=== PATIENT | male | born 1970 | race Two or more races ===

== ENCOUNTER 2021-01-17 09:30 | Outpatient (REF) | payer OTHER, SELFPAY ==
[2021-01-17 10:41] LABS: Microalbum/Creatinine Ratio Ur 7.3 ug/mg cr
[2021-01-17 10:43] LABS: Alanine Aminotransferase 44 U/L (0-40); Albumin Level 4.1 g/dL (3.5-5.0); Alkaline Phosphatase 51 U/L (39-117); Anion Gap 11 (12-20); Aspartate Amino Transferase 35 U/L (5-37); Bilirubin Total 0.6 mg/dL (0.0-1.0); Blood Urea Nitrogen 12 mg/dL (9-16); Calcium 9.3 mg/dL (8.4-10.2); Carbon Dioxide 26 mmol/L (22-29); Chloride 103 mmol/L (96-108); Cholesterol 193 mg/dL; Estimated Glomerular Filt Rate > 60; Glucose Fasting 196 mg/dL (60-99); HDL Cholesterol 45 mg/dL; LDL Cholesterol Calculated 90 mg/dl; Potassium 3.7 mmol/L (3.3-5.1); Sodium 136 mmol/L (135-145); Total Protein 7.1 g/dL (6.5-8.0); Triglycerides 294 mg/dL
[2021-01-21 14:17] LABS: Vitamin D 25-OH, D2 <4 ng/mL; Vitamin D 25-OH, D3 40 ng/mL; Vitamin D 25-OH, Total 40 ng/mL (30-100)
== END 2021-01-17 09:31 | disposition home or self-care (01) ==
LOC: HO.LAB 09:30
PROVIDERS: PCP Internal Medicine; Visit Provider Internal Medicine
DX: E11.9 Type 2 diabetes mellitus without complications (principal); E78.5 Hyperlipidemia, unspecified; E55.9 Vitamin D deficiency, unspecified
CPT/HCPCS: 36415; 80053; 80061; 82043; 82306

== ENCOUNTER 2021-04-09 07:44 | Outpatient (REF) | payer OTHER, SELFPAY ==
[2021-04-09 08:34] LABS: Alanine Aminotransferase 43 U/L (0-40); Albumin Level 4.1 g/dL (3.5-5.0); Alkaline Phosphatase 45 U/L (39-117); Anion Gap 11 (12-20); Aspartate Amino Transferase 20 U/L (5-37); Bilirubin Total 0.8 mg/dL (0.0-1.0); Blood Urea Nitrogen 8 mg/dL (9-16); Calcium 9.4 mg/dL (8.4-10.2); Carbon Dioxide 26 mmol/L (22-29); Chloride 103 mmol/L (96-108); Cholesterol 176 mg/dL; Estimated Glomerular Filt Rate > 60; Glucose Fasting 190 mg/dL (60-99); HDL Cholesterol 44 mg/dL; LDL Cholesterol Calculated 95 mg/dl; Sodium 136 mmol/L (135-145); Total Protein 7.1 g/dL (6.5-8.0); Triglycerides 185 mg/dL
== END 2021-04-09 07:45 | disposition home or self-care (01) ==
LOC: HO.LAB 07:44
PROVIDERS: PCP Internal Medicine; Visit Provider Internal Medicine
DX: E11.9 Type 2 diabetes mellitus without complications (principal)
CPT/HCPCS: 36415; 80053; 80061

== ENCOUNTER 2021-07-26 07:45 | Outpatient (REF) | payer OTHER, SELFPAY ==
[2021-07-26 09:12] LABS: Alanine Aminotransferase 44 U/L (0-40); Albumin Level 4.2 g/dL (3.5-5.0); Alkaline Phosphatase 50 U/L (39-117); Anion Gap 12 (12-20); Aspartate Amino Transferase 31 U/L (5-37); Bilirubin Total 0.7 mg/dL (0.0-1.0); Blood Urea Nitrogen 8 mg/dL (9-16); Calcium 9.6 mg/dL (8.4-10.2); Carbon Dioxide 30 mmol/L (22-29); Chloride 101 mmol/L (96-108); Cholesterol 200 mg/dL; Estimated Glomerular Filt Rate > 60; Glucose Fasting 177 mg/dL (60-99); HDL Cholesterol 46 mg/dL; LDL Cholesterol Calculated 108 mg/dl; Potassium 4.4 mmol/L (3.3-5.1); Sodium 139 mmol/L (135-145); Total Protein 7.6 g/dL (6.5-8.0); Triglycerides 234 mg/dL
[2021-07-26 10:33] LABS: Microalbum/Creatinine Ratio Ur 6.1 ug/mg cr
[2021-07-31 14:15] LABS: Vitamin D 25-OH, D2 <4 ng/mL; Vitamin D 25-OH, D3 34 ng/mL; Vitamin D 25-OH, Total 34 ng/mL (30-100)
== END 2021-07-26 07:46 | disposition home or self-care (01) ==
LOC: HO.LAB 07:45
PROVIDERS: PCP Internal Medicine; Visit Provider Internal Medicine
DX: E11.9 Type 2 diabetes mellitus without complications (principal); E55.9 Vitamin D deficiency, unspecified; E78.5 Hyperlipidemia, unspecified
CPT/HCPCS: 36415; 80053; 80061; 82043; 82306

== ENCOUNTER 2021-10-24 08:49 | Outpatient (REF) | payer OTHER, SELFPAY ==
--- NOTE | 2021-10-24 08:51 | EMG_ITS ---
Right median and ulnar motor and sensory studies were performed. Right radial sensory study was performed and paraspinal muscles were tested. IMPRESSION: 1. Mild to moderate right median neuropathy across carpal tunnel. 2. Mild right ulnar neuropathy across cubital tunnel. MD JANINA Dunbar/KAREN / [phone]
== END 2021-10-24 08:50 | disposition home or self-care (01) ==
LOC: HO.NEURO 08:49
PROVIDERS: PCP Internal Medicine; Visit Provider Internal Medicine
DX: R20.0 Anesthesia of skin (principal)
CPT/HCPCS: 95886; 95909

== ENCOUNTER 2021-12-17 11:28 | Outpatient (REF) | payer OTHER, SELFPAY ==
[2021-12-17 14:15] LABS: Alanine Aminotransferase 28 U/L (0-40); Albumin Level 4.2 g/dL (3.5-5.0); Alkaline Phosphatase 47 U/L (39-117); Anion Gap 13 (12-20); Aspartate Amino Transferase 16 U/L (5-37); Bilirubin Total 0.3 mg/dL (0.0-1.0); Blood Urea Nitrogen 9 mg/dL (9-16); Calcium 9.7 mg/dL (8.4-10.2); Carbon Dioxide 27 mmol/L (22-29); Chloride 102 mmol/L (96-108); Cholesterol 169 mg/dL; Estimated Glomerular Filt Rate > 60; Glucose Fasting 144 mg/dL (60-99); HDL Cholesterol 45 mg/dL; LDL Cholesterol Calculated 76 mg/dl; Sodium 138 mmol/L (135-145); Total Protein 7.3 g/dL (6.5-8.0); Triglycerides 241 mg/dL
[2021-12-17 14:37] LABS: TSH reflex Free T4 2.49 uIU/mL (0.32-4.0)
[2021-12-17 15:15] LABS: Creatinine Urine 264.89 mg/dL; Microalbum/Creatinine Ratio Ur 4.5 ug/mg cr
[2021-12-19 20:52] LABS: Transglutaminase Ab IgG <1.0 U/mL; Transglutaminase IgA <1.0 U/mL
[2021-12-21 13:52] LABS: Vitamin D 25-OH, D2 <4 ng/mL; Vitamin D 25-OH, D3 38 ng/mL; Vitamin D 25-OH, Total 38 ng/mL (30-100)
== END 2021-12-17 11:29 | disposition home or self-care (01) ==
LOC: HO.LAB 11:28
PROVIDERS: PCP Internal Medicine; Referring Provider Internal Medicine; Visit Provider Nurse Practitioner Family
DX: R10.9 Unspecified abdominal pain (principal); K58.2 Mixed irritable bowel syndrome; K21.9 Gastro-esophageal reflux disease without esophagitis; E11.9 Type 2 diabetes mellitus without complications; E78.5 Hyperlipidemia, unspecified; E55.9 Vitamin D deficiency, unspecified
CPT/HCPCS: 36415; 80053; 80061; 82043; 82306; 84443; 86364; 99202

== ENCOUNTER 2021-12-17 19:50 | Outpatient (REF) | payer OTHER, SELFPAY | END 2021-12-17 19:51 | disposition home or self-care (01) | LOC: HO.LNP 19:50 | PROVIDERS: Visit Provider Nurse Practitioner Family | DX: K21.9 Gastro-esophageal reflux disease without esophagitis (principal) | CPT/HCPCS: 87338 ==

== ENCOUNTER 2022-02-27 09:12 | Outpatient (REF) | payer OTHER, SELFPAY ==
[2022-02-27 11:06] LABS: Alanine Aminotransferase 27 U/L (0-40); Alkaline Phosphatase 46 U/L (39-117); Anion Gap 11 (12-20); Aspartate Amino Transferase 18 U/L (5-37); Bilirubin Total 0.4 mg/dL (0.0-1.0); Blood Urea Nitrogen 9 mg/dL (9-16); Carbon Dioxide 28 mmol/L (22-29); Chloride 105 mmol/L (96-108); Cholesterol 170 mg/dL; Estimated Glomerular Filt Rate > 60; Glucose Fasting 122 mg/dL (60-99); HDL Cholesterol 46 mg/dL; LDL Cholesterol Calculated 95 mg/dl; Potassium 4.3 mmol/L (3.3-5.1); Sodium 140 mmol/L (135-145); Total Protein 7.1 g/dL (6.5-8.0); Triglycerides 148 mg/dL
[2022-02-27 12:01] LABS: Microalbum/Creatinine Ratio Ur 4.2 ug/mg cr
== END 2022-02-27 09:13 | disposition home or self-care (01) ==
LOC: HO.LAB 09:12
PROVIDERS: PCP Internal Medicine; Visit Provider Internal Medicine
DX: E11.9 Type 2 diabetes mellitus without complications (principal); E78.5 Hyperlipidemia, unspecified
CPT/HCPCS: 36415; 80053; 80061; 82043

== ENCOUNTER → 2022-03-03 10:35 | Outpatient (BNVA) | payer OTHER, SELFPAY | PROVIDERS: PCP Internal Medicine; Visit Provider Nurse Practitioner Family | DX: K58.2 Mixed irritable bowel syndrome (principal); K21.9 Gastro-esophageal reflux disease without esophagitis; Z79.899 Other long term (current) drug therapy | CPT/HCPCS: 99212 ==

== ENCOUNTER 2022-09-11 09:08 | Outpatient (REF) | payer OTHER, SELFPAY ==
[2022-09-11 10:28] LABS: Creatinine Urine 303.39 mg/dL; Microalbum/Creatinine Ratio Ur 5.9 ug/mg cr
[2022-09-11 10:31] LABS: Alanine Aminotransferase 35 U/L (0-40); Albumin Level 4.2 g/dL (3.5-5.0); Alkaline Phosphatase 52 U/L (39-117); Anion Gap 13 (12-20); Aspartate Amino Transferase 16 U/L (5-37); Bilirubin Total 0.6 mg/dL (0.0-1.0); Blood Urea Nitrogen 8 mg/dL (9-16); Calcium 9.5 mg/dL (8.4-10.2); Carbon Dioxide 29 mmol/L (22-29); Chloride 105 mmol/L (96-108); Cholesterol 163 mg/dL; Estimated Glomerular Filt Rate > 60; Glucose Fasting 121 mg/dL (60-99); HDL Cholesterol 36 mg/dL; LDL Cholesterol Calculated 93 mg/dl; Potassium 4.6 mmol/L (3.3-5.1); Sodium 142 mmol/L (135-145); Total Protein 7.1 g/dL (6.5-8.0); Triglycerides 173 mg/dL
[2022-09-11 10:47] LABS: Vitamin D 25-OH Total 32.1 ng/mL (>30)
== END 2022-09-11 09:09 | disposition home or self-care (01) ==
LOC: HO.LAB 09:08
PROVIDERS: PCP Internal Medicine; Visit Provider Internal Medicine
DX: E11.9 Type 2 diabetes mellitus without complications (principal); E55.9 Vitamin D deficiency, unspecified; E78.5 Hyperlipidemia, unspecified
CPT/HCPCS: 36415; 80053; 80061; 82043; 82306

== ENCOUNTER 2023-01-08 09:51 | Outpatient (REF) | payer OTHER, SELFPAY ==
[2023-01-08 11:49] LABS: Creatinine Urine 220.67 mg/dL; Microalbum/Creatinine Ratio Ur 4.9 ug/mg cr
[2023-01-08 12:13] LABS: Alanine Aminotransferase 28 U/L (0-40); Albumin Level 4.1 g/dL (3.5-5.0); Alkaline Phosphatase 44 U/L (39-117); Anion Gap 14 (12-20); Aspartate Amino Transferase 18 U/L (5-37); Bilirubin Total 0.8 mg/dL (0.0-1.0); Blood Urea Nitrogen 11 mg/dL (9-16); Calcium 9.5 mg/dL (8.4-10.2); Carbon Dioxide 24 mmol/L (22-29); Chloride 104 mmol/L (96-108); Cholesterol 178 mg/dL; Estimated Glomerular Filt Rate > 60; Glucose Fasting 126 mg/dL (60-99); HDL Cholesterol 43 mg/dL; LDL Cholesterol Calculated 98 mg/dl; Potassium 4.2 mmol/L (3.3-5.1); Sodium 138 mmol/L (135-145); Total Protein 7.3 g/dL (6.5-8.0); Triglycerides 188 mg/dL; Vitamin D 25-OH Total 39.8 ng/mL (>30)
== END 2023-01-08 09:52 | disposition home or self-care (01) ==
LOC: HO.LAB 09:51
PROVIDERS: PCP Internal Medicine; Visit Provider Internal Medicine
DX: E78.5 Hyperlipidemia, unspecified (principal); E11.9 Type 2 diabetes mellitus without complications; E55.9 Vitamin D deficiency, unspecified
CPT/HCPCS: 36415; 80053; 80061; 82043; 82306

== ENCOUNTER 2023-04-07 10:35 | Outpatient (REF) | payer OTHER, SELFPAY ==
--- NOTE | ~2023-04-07 | XR_ITS ---
EXAMINATION: XR CERVICAL SPINE CLINICAL INFORMATION: Spondylosis without myelopathy or radiculopathy, cervical region COMPARISON: 06/12/2015 TECHNIQUE: 6 views of the cervical spine, inclusive of flexion and extension views, were obtained. FINDINGS: Mineralization is normal. There is no fracture or vertebral malalignment. The posterior elements are intact. The disc spaces are preserved. There is mild anterior osteophyte at C5-6 and C6-7 which has developed since previous examination. The foramina are suboptimally demonstrated, but no definite bony foraminal narrowing is appreciated. The prevertebral and paravertebral soft tissues appear unremarkable. There is limited range of motion with flexion and extension, but no instability is demonstrated. XR/XR cervical spine w flex/ext IMPRESSION: Mild spondylosis at C5-6 and C6-7. No acute or focal abnormality is evident.
== END 2023-04-07 10:36 | disposition home or self-care (01) ==
LOC: HO.XRAY 10:35
PROVIDERS: PCP Internal Medicine; Visit Provider Registered Nurse Emergency
DX: M47.812 Spondylosis without myelopathy or radiculopathy, cervical region (principal); S46.819A Strain of other muscles, fascia and tendons at shoulder and upper arm level, unspecified arm, initial encounter; M79.18 Myalgia, other site; M54.50 Low back pain, unspecified
CPT/HCPCS: 72052

== ENCOUNTER 2023-04-07 10:35 | Outpatient (AMB) | payer OTHER, SELFPAY ==
--- NOTE | 2023-04-07 10:36 | MHC.OFFVIS ---
Intake Vital Signs 04/07/23 10:42 Height 6 ft 1 in Weight 270 lb 5 oz BMI 35.7 BP 126/80 Blood Pressure Location Rt brachial Position Sitting Respiration 16 Pulse 78 Pulse Source Pulse Oximeter Pulse Oximetry (%) 96 Oxygen Delivery Method Room Air Intake Visit Reasons: CERVICAL RADICULOPATHY Tub Rider Required: Yes Tub Rider Name: Dianne Elizabeth Allergies No Known Allergies Allergy (Verified 04/07/23 10:41) HPI HPI Comments History of Present Illness Details Visit completed with assistance of Dianne Elizabeth for Faroese interpretation. Brett is a very pleasant 52 year old Faroese speaking male who presents to the office today for evaluation and management of his chronic neck and upper back pain. Patient reports pain started many years ago but has been constant for last 2 years. Pain today is rated as 8/10 but he reports that at times will be 10/10. Pain is increased with over head use of the arms and cervical range of motion. Tenderness to palpation across upper back and shoulder. Patient states pain radiates into his back and he also c/o lower back pain. He denies pain down either arm. Denies red flag symptoms including numbness, weakness or loss of strength in hands. Patient has been taking oxycodone and gabapentin prescribed by pcp with good effect, states will lower pain to approx 4/10. He has not tried PT, massage, acupuncture, injections. Condition is described as aching, spasming, cramping, throbbing, numb, stabbing, sharp, tingling. Pain is negatively impacting patients enjoyment of life, recreational activities, mood, sleep and general activity. Patient denies implantable devices, pacemaker, defibrillator. Patient denies current use of tobacco, alcohol or illicit substances. [facility] Medical History (Updated 04/07/23 @ 11:08 by Natalie Orozco APRN, REGULATOR MECHANIC) Acid reflux Anxiety and depression Back pain Cervical radiculopathy Diabetes mellitus Essential hypertension Hand numbness History of heart murmur in childhood Knee pain, left Lumbar degenerative disc disease Median neuropathy JUAN on CPAP Osteoarthritis of left knee Osteoarthritis of neck Ulnar neuropathy Surgical History History of cholecystectomy History of left knee surgery History of surgery History of total left knee replacement (TKR) Family History Father Diabetes Hypertension Mother Hypertension Lung cancer Sister Stomach cancer Social History Housing: Apartment Alcohol intake: never Patient Tobacco Use Status: Never used Tobacco e-Cigarette/Vaping Use: Never Used Second Hand Smoke Exposure: No service: No Current occupational status: disabled Cognitive needs: Yes Hearing needs: No Vision needs: No Review of Systems Const All systems reviewed & are unremarkable except as noted in HPI and below Physical Exam Vital Signs: Last Vital Signs Pulse 78 04/07/23 10:42 Resp 16 04/07/23 10:42 BP 126/80 04/07/23 10:42 Pulse Ox 96 04/07/23 10:42 Oxygen Delivery Method Room Air 04/07/23 10:42 BMI result Body Mass Index 35.7 General: awake, alert, oriented. Answers questions appropriately. Fully engaged in examination. Skin: warm, dry, intact HEENT: Normocephalic. Hearing intact. Cardiac: External chest normal in appearance. Respiratory: No cough, audible wheezing or stridor. Abdomen: without gross distension. MS: No obvious swelling or deformities. Able to transition from sit to stand unassisted. Ambulates with bilaterally normal heel strike and toe off Neurological: Oriented to person, place, time and situation. Thought process intact. No gait abnormalities appreciated. Psychiatric: Appropriate mood and affect. Good judgment and insight. Back/Spine/Pelvis Other: Cervical Spine: Visible inspection without gross abnormality Moderate tenderness throughout bilateral upper/middle and lower trapezius muscles Nontender to palpation over cervical vertebrae Patient with decreased cervical ROM in all planes with moderate pain upon right and left lateral flexion. Spurling compression test negative. Elvey's tension test negative Lhermitte's test negative. BUE strength 5/5 DTR symmetrical and intact bilaterally. 2+ radial pulses. Assessment & Plan Assessment & Plan (1) Trapezius muscle strain: Code(s): S46.819A - Strain of other muscles, fascia and tendons at shoulder and upper arm level, unspecified arm, initial encounter (2) Myofascial muscle pain: Code(s): M79.18 - Myalgia, other site (3) Cervical spondylosis: Code(s): M47.812 - Spondylosis without myelopathy or radiculopathy, cervical region Plan Brett is a very pleasant 52-year-old male who presented to the office today for evaluation and management of his chronic neck and upper back pain. History, physical exam and provocative testing most consistent with cervical spondylosis, trapezius muscle strain and myofascial upper back pain. The patient has not exhausted conservative therapy. Order for PT eval and treat placed X-ray cervical spine ordered today. patient to complete before next visit. Topical compound cream sent to specialty pharmacy, patient instructed on use. Advised to call office if not covered by insurance to discuss alternative. Continue with medications as prescribed by PCP. Discussed options for treatment including diagnostic interventional testing, epidural steroid injections, peripheral nerve stimulation with Sprint, RFA and more permanent neuromodulation. If patient does not benefit from planned conservative treatment will schedule for Fluoroscopy guided bilateral diagnostic C4-C5-C6 MBBs with local anesthetic. All questions and concerns have been answered and patient agrees with the plan. Follow up after injections and sooner if needed. Orders: Orders XR cervical spine w flex/ext Today M47.812 - Spondylosis without myelopathy or radiculopathy, cervical region PT Evaluation and Treatment Today M54.50 - Low back pain, unspecified, S46.819A - Strain of other muscles, fascia and tendons at shoulder and upper arm level, unspecified arm, initial encounter Medications: New cream base no.105 (bulk) (Base W301 cream) Diclofenac 5%, Baclofen 5%, Cyclobenzaprine 2%, Gabapentin 6%, Bupivacaine 2% SIG: apply pea-sized amount 3-5 times daily to painful areas as needed 180 grams 0RF pain S46.819A - Strain of other muscles, fascia and tendons at shoulder and upper arm level, unspecified arm, initial encounter Coding Level of Care Code New Pt Level 4 (38288) Diagnoses Trapezius muscle strain S46.819A Myofascial muscle pain M79.18 Cervical spondylosis M47.812
[2023-04-07 10:42] VITALS: BP 126/80; PULSE 78; RESP 16; O2SAT 96; BMI 35.7
== END 2023-04-07 11:01 | disposition home or self-care (01) ==
PROVIDERS: PCP Internal Medicine; Visit Provider Registered Nurse Emergency
DX: S46.819A Strain of other muscles, fascia and tendons at shoulder and upper arm level, unspecified arm, initial encounter (principal); M79.18 Myalgia, other site; M47.812 Spondylosis without myelopathy or radiculopathy, cervical region
CPT/HCPCS: 99204

== ENCOUNTER 2023-04-15 06:22 | Outpatient (REF) | payer OTHER, SELFPAY ==
[2023-04-15 07:58] LABS: Creatinine Urine 243.17 mg/dL; Microalbum/Creatinine Ratio Ur 3.7 ug/mg cr (<30)
[2023-04-15 08:04] LABS: Alanine Aminotransferase 23 U/L (0-40); Albumin Level 4.2 g/dL (3.5-5.0); Alkaline Phosphatase 43 U/L (39-117); Anion Gap 12 (12-20); Aspartate Amino Transferase 15 U/L (5-37); Bilirubin Total 0.4 mg/dL (0.0-1.0); Blood Urea Nitrogen 8 mg/dL (9-16); Calcium 9.4 mg/dL (8.4-10.2); Carbon Dioxide 26 mmol/L (22-29); Chloride 106 mmol/L (96-108); Cholesterol 149 mg/dL (<200); Estimated Glomerular Filt Rate > 60; Glucose Fasting 126 mg/dL (60-99); HDL Cholesterol 42 mg/dL (>40); LDL Cholesterol Calculated 88 mg/dL (<100); Sodium 140 mmol/L (135-145); Total Protein 7.5 g/dL (6.5-8.0); Triglycerides 98 mg/dL (<150)
[2023-04-15 08:21] LABS: Vitamin D 25-OH Total 43.6 ng/mL (>30)
== END 2023-04-15 06:23 | disposition home or self-care (01) ==
LOC: HO.LAB 06:22
PROVIDERS: PCP Internal Medicine; Visit Provider Internal Medicine
DX: E11.9 Type 2 diabetes mellitus without complications (principal); E55.9 Vitamin D deficiency, unspecified; E78.5 Hyperlipidemia, unspecified
CPT/HCPCS: 36415; 80053; 80061; 82043; 82306; 82570

== ENCOUNTER 2023-05-21 16:35 | Outpatient (AMB) | payer OTHER, SELFPAY ==
--- NOTE | 2023-05-21 16:39 | MHC.PC.OV ---
Vital Signs 05/21/23 16:40 Height 6 ft 1 in Weight 272 lb BMI 35.9 BP 118/80 Blood Pressure Location Lt brachial Position Sitting Pulse 84 Pulse Source Pulse Oximeter Pulse Oximetry (%) 97 Oxygen Delivery Method Room Air Intake Visit Reasons: dm Intake Note: Patient here for a follow up DM [place] Stocker Required: No Accompanied by: Self / Same As Patient Allergies No Known Allergies Allergy (Verified 05/21/23 16:51) Medication List - Last Reconciled 05/21/23 by Jennifer Galvin MD aspirin 81 mg PO DAILY 90 days bisacodyl (Dulcolax (bisacodyl)) 10 mg (2 x 5 mg) PO ONCE 1 day blood pressure monitor (Blood Pressure Kit) As directed blood sugar diagnostic Use 1 freestyle test strips once a day buspirone 5 mg PO TID clonazepam 1 mg PO BID PRN cream base no.105 (bulk) (Base W301 cream) Diclofenac 5%, Baclofen 5%, Cyclobenzaprine 2%, Gabapentin 6%, Bupivacaine 2% SIG: apply pea-sized amount 3-5 times daily to painful areas as needed docusate sodium 100 mg PO BEDTIME dulaglutide (Trulicity) 0.75 mg (0.5 mL) subcut QWEEK 30 days duloxetine 60 mg PO DAILY ezetimibe 10 mg PO DAILY 90 days folic acid 1 mg PO DAILY 90 days furosemide 20 mg PO DAILY 90 days gabapentin 800 mg PO TID 30 days lancets As directed linagliptin (Tradjenta) 5 mg PO DAILY lisinopril 20 mg PO DAILY loratadine 10 mg PO DAILY metformin 1,000 mg PO BID 90 days omeprazole 20 mg PO DAILY 90 days oxycodone 10 mg PO Q4-6H PRN 30 days polyethylene glycol 3350 (Miralax) 238 grams PO ONCE rosuvastatin 40 mg PO DAILY 90 days sennosides (Natural Senna Laxative) 17.2 mg (2 x 8.6 mg) PO BEDTIME zolpidem 10 mg PO BEDTIME PRN Tobacco use date assessed: 08/26/22 Dental Screening Dental Screen Date: 05/21/23 Did you have a dental visit in the last 12 months?: No Did you have a dental problem in the last 6 months where you did not have access to dental care?: No Was dental information given to patient?: Patient has dentist HPI HPI Comments History of Present Illness Details This is a 52-year-old male with hypertension, diabetes mellitus type 2, hyperlipidemia and mild recurrent major depression that comes today for follow-up on his conditions. Blood pressure well controlled on medications. A1c within goal. LDL improved but not on goal. Depression stable with medications and follow by Psychiatry. [facility] Medical History Osteoarthritis of neck Back pain Anxiety and depression History of heart murmur in childhood JUAN on CPAP Knee pain, left Acid reflux Ulnar neuropathy Median neuropathy Hand numbness Diabetes mellitus Essential hypertension Lumbar degenerative disc disease Cervical radiculopathy Osteoarthritis of left knee Surgical History History of total left knee replacement (TKR) History of surgery History of cholecystectomy History of left knee surgery Family History Father Diabetes Hypertension Mother Hypertension Lung cancer Sister Stomach cancer Social History Housing: Apartment Alcohol intake: never Patient Tobacco Use Status: Never used Tobacco e-Cigarette/Vaping Use: Never Used Second Hand Smoke Exposure: No service: No Current occupational status: disabled Cognitive needs: Yes Hearing needs: No Vision needs: No Questionnaire Thrive Questionnaire Date Thrive assessed: 08/26/22 LOBO-7 AMB Questionnaire LOBO-7 Date LOBO - 7 assessed: 08/26/22 Source: Developed by Drs. Guillaume Corea, Jordana Robertson, Froilan Aguilar and colleagues, with an educational radhika from [employer]. Review of Systems Const All systems reviewed & are unremarkable except as noted in HPI and below Eyes Reports no additional complaints, Denies change in vision and Denies other visual disturbances Card Denies chest pain at rest, Denies chest pain with activity, Denies edema, Denies irregular heart rhythm, Denies claudication, Denies dyspnea, Denies dyspnea on exertion, Denies orthopnea, Denies paroxysmal nocturnal dyspnea and Denies slow heart rate Resp Denies cough, Denies dyspnea and Denies dyspnea on exertion GI Denies abdominal pain, Denies change in bowel habits, Denies excessive flatus, Denies nausea and Denies vomiting Denies urinary hesitancy, Denies urinary incontinence and Denies urinary urgency Musc Denies abnormal gait, Denies atrophy, Denies deformity and Denies limited range of motion Skin/Breast Denies bleeding lesions, Denies changing lesions and Denies rash Neuro Denies abnormal gait and Denies lack of coordination Physical exam (Primary Care) Vital Signs: Last Vital Signs Pulse 84 05/21/23 16:40 BP 118/80 05/21/23 16:40 Pulse Ox 97 05/21/23 16:40 Oxygen Delivery Method Room Air 05/21/23 16:40 BMI result Body Mass Index 35.9 Tobacco/Smoking Status: Tobacco use Status Tobacco use date assessed 08/26/22 05/21/23 16:48 Patient Tobacco Use Status Never used Tobacco 05/21/23 16:48 e-Cigarette/Vaping Use Never Used 05/21/23 16:48 Thrive Assessment: Date of Thrive Assessment Date Thrive assessed 08/26/22 05/21/23 16:48 Eyes General: appearance normal, both eyes and all related structures Eyelids: Yes eyelids normal Conjunctivae: conjunctivae normal Neck Neck: Yes normal visual inspection and Yes supple Resp Effort & Inspection: normal respiratory effort Auscultation: clear to auscultation bilaterally Cardio Jugular venous distension: no JVD Rate: regular rate Rhythm: regular rhythm Heart sounds: S1 normal heart sound present and S2 normal heart sound present Extrem General: Yes full ROM Office Procedures Flu Questionnaire Does the patient have a severe egg allergy?: No Does the patient have severe life threatening allergies?: No Does the patient have a fever or illness today?: No Has the patient ever had Guillain-[place] Syndrome?: No Has the patient ever had any past reaction to a flu shot?: No Results AMB Hemoglobin A1c AMB Hemoglobin A1c 6.4 % Last Edit by DAVID Ty on 05/21/23 16:52 Immunizations flu vacc [id number] 6mos up(PF) 60 mcg(15 mcgx4)/0.5 mL IM syringe Performing Provider: Jennifer Galvin MD Performing Location: [facility] Administered by: DAVID Ty on 05/21/23 16:51 Dose Route Admin Location Dispensed Lot Number Expiration Date NDC Production Administrator 0.5 mL IM Left Deltoid 0.5 mL [id number] 02/07/24 44990-905-87 RTF Logic VIS Given Date VIS Provided VIS Publication Date 05/21/23 Single Vaccine 21 Eligibility Eligibility Date Funding Source Not VF Eligible 05/21/23 Private Results Reviewed Results Reviewed: Laboratory Last Values Hgb A1c (Clinic) 6.4 % (4.0-6.0) H 05/21/23 16:39 Assessment and Plan Assessment & Plan (1) Mild recurrent major depression: Code(s): F33.0 - Major depressive disorder, recurrent, mild Plan: Continue duloxetine. (2) Hyperlipidemia LDL goal <70: Code(s): E78.5 - Hyperlipidemia, unspecified Plan: Continue zetia and statin. LDL goal is less than 70. (3) Diabetes mellitus: Code(s): E11.9 - Type 2 diabetes mellitus without complications Qualifiers: Diabetes mellitus type: type 2 Diabetes mellitus medical terminologist insulin use: without [place] [facility] use Diabetes mellitus complication status: without complication Qualified Code(s): E11.9 - Type 2 diabetes mellitus without complications Plan: Continue Tradjenta and Metformin. A1c goal is equal or less yhan 7%. (4) Essential hypertension: Code(s): I10 - Essential (primary) hypertension Plan: Continue lisinopril. BP goal is equal or less than 130/80 Orders: Orders AMB Hemoglobin A1c Today E11.9 - Type 2 diabetes mellitus without complications Lipid Panel Today E78.5 - Hyperlipidemia, unspecified Microalbumin, Random (w Creat) Today E11.9 - Type 2 diabetes mellitus without complications Influenza [id number] Immunization Today Z23 - Encounter for immunization Vitamin D 25-OH Total Today E55.9 - Vitamin D deficiency, unspecified Comprehensive [place]. Panel Fast Today E11.9 - Type 2 diabetes mellitus without complications Coding Level of Care Code Est Pt Level 4 (63115) Diagnoses Mild recurrent major depression F33.0 Hyperlipidemia LDL goal <70 E78.5 Type 2 diabetes mellitus without complication, without long-term current use of insulin E11.9 Diabetes mellitus type: type 2 Diabetes mellitus medical terminologist insulin use: without [place] [facility] use Diabetes mellitus complication status: without complication Essential hypertension I10 Time Spent (min) 23
[2023-05-21 16:40] VITALS: BP 118/80; PULSE 84; O2SAT 97; BMI 35.9
== END 2023-05-21 16:58 | disposition home or self-care (01) ==
PROVIDERS: PCP Internal Medicine; Visit Provider Internal Medicine
DX: Z23 Encounter for immunization (principal); E11.9 Type 2 diabetes mellitus without complications; F33.0 Major depressive disorder, recurrent, mild; E78.5 Hyperlipidemia, unspecified; I10 Essential (primary) hypertension
CPT/HCPCS: 83036; 90471; 90686; 99214

== ENCOUNTER 2023-06-12 10:36 | Emergency (ER) | payer OTHER, SELFPAY ==
--- NOTE | ~2023-06-12 | CT_ITS ---
EXAMINATION: CT brain and CT cervical spine without contrast. Thoracic spine. Clinical indications: Fall, head strike. COMPARISON: MRI lumbar spine 12/29/2018 and 08/22/2019. TECHNIQUE: 5 mm thin axial and reformatted 2 mm thin sagittal and coronal images of brain were obtained. Subsequently axial 3 mm thin and reformatted 2 mm thin sagittal and coronal images of cervical spine were obtained. DLP 1575. This CT examination was performed using dose optimization technique as appropriate, variously including the following: Automated exposure control Adjustment of MA and/or KV according to patient size(this includes techniques or standardized protocols for targeted exams where dose is matched to indication/reason for exam; extremities or head. Use of iterative reconstruction techniques. Dorsal spine 2 views. FINDINGS: Brain: There is no acute intra-axial, extra-axial bleed, masses or midline shift. There is no acute infarction evolution. There is no edema. The luz to white matter differentiation is maintained normal. The lateral ventricles are symmetrical in size and configuration without enlargement. Bone windows reveal no calvarial abnormality. Bilateral paranasal sinuses and mastoid air cells are well-aerated. No scalp soft tissue abnormality seen. Cervical spine: There is mild straightening of cervical lordosis. The vertebral heights, alignment and disc heights are normal. There is mild ventral spondylosis C5-C6 and C6-C7 disc levels. No aggressive lytic or sclerotic process seen. The craniovertebral junction and C1-C2 alignment is normal. There is no acute fracture, dislocation or subluxation seen. The prevertebral and paravertebral soft tissues are normal. The lung apices are clear. CT/CT cervical spine wo IV con IMPRESSION: No acute intracranial process seen. There is no visible acute fracture or dislocation cervical spine. There is mild ventral spondylosis C5-C6 and C6-C7 disc levels. Mild scoliosis dorsal spine otherwise unremarkable dorsal spine x-ray.
--- NOTE | ~2023-06-12 | XR_ITS ---
EXAMINATION: XR RIBS, RIGHT CLINICAL INFORMATION: Right rib pain. COMPARISON: Chest radiograph 01/09/2013. TECHNIQUE: 3 views of the right ribs were obtained. FINDINGS: Unchanged cardiomediastinal silhouette. No focal airspace opacity, pleural effusion or pneumothorax. No displaced rib fractures. Asymmetric widening of the right sternoclavicular joint on the right side on the PA view of the chest. XR/XR ribs RT min 3V w CXR1V IMPRESSION: 1. No acute cardiopulmonary findings. 2. No displaced rib fractures. 3. Asymmetric widening of the right sternoclavicular joint on the PA view of the chest, possibly artifactual related with patient's rotation, correlate with point tenderness.
--- NOTE | ~2023-06-12 | XR_ITS ---
EXAMINATION: XR LUMBOSACRAL SPINE CLINICAL INFORMATION: Low back pain COMPARISON: MRI of lumbar spine from 01/21/2020 TECHNIQUE: Three views of the lumbosacral spine. FINDINGS: The vertebral bodies and posterior elements are normal. The disc spaces are preserved and the vertebral alignment is normal. The paraspinal soft tissues are normal. XR/XR lumbar spine 2-3V IMPRESSION: Unremarkable examination.
[2023-06-12 10:56] VITALS: BP 136/64; PULSE 68; RESP 18; TEMP 36.4; O2SAT 97; BMI 33.4
--- NOTE | 2023-06-12 10:56 | ED.GENADULT ---
HPI - General Adult General Chief complaint: Fall Stated complaint: Neck and Back Pain S/P Fall 4 Days Ago Time Seen by Provider: 06/12/23 11:32 Source: patient, RN notes reviewed and old records reviewed Mode of arrival: ambulatory History of Present Illness HPI narrative: 52-year-old male with a past medical history of anxiety, depression, JUAN on CPAP, GERD, diabetes, HTN, lumbar degenerative disc disease, cervical radiculopathy, osteoarthritis, presenting to the ED complaining of headache and lightheadedness since fall with +head strike 5 days ago. Patient states he became lightheaded/dizzy and fell backwards striking head with unknown LOC, however states was on the ground for a long time. Fall was unwitnessed. Denies taking anticoagulation. Also reports neck/back pain, right-sided rib pain, and paresthesias to upper and lower extremities. Reports upper extremity weakness. Reports chronic incontinence, unchanged. Denies abdominal pain, nausea/vomiting, retention, dysuria, fever, CP/SOB prior to fall Related Data Home Medications Medication Instructions Recorded Confirmed buspirone 5 mg tablet 5 mg PO TID 07/09/20 05/21/23 clonazepam 2 mg tablet 1 mg PO BID PRN Anxiety 07/09/20 05/21/23 duloxetine 60 mg capsule,delayed 60 mg PO DAILY 07/09/20 05/21/23 release zolpidem 10 mg tablet 10 mg PO BEDTIME PRN Sleep 07/09/20 05/21/23 Previous Rx's Medication Instructions Recorded lancets 28 gauge #100 ea 06/18/21 linagliptin 5 mg tablet (Tradjenta) 5 mg PO DAILY #30 tabs 08/21/21 bisacodyl 5 mg tablet,delayed 10 mg (2 x 5 mg) PO ONCE 1 day #2 03/03/22 release (Dulcolax (bisacodyl)) tabs polyethylene glycol 3350 17 238 g PO ONCE #238 grams 03/03/22 gram/dose oral powder (Miralax) sennosides 8.6 mg tablet (Natural 17.2 mg (2 x 8.6 mg) PO BEDTIME 03/03/22 Senna Laxative) constipation #90 tabs docusate sodium 100 mg capsule 100 mg PO BEDTIME #90 caps 05/14/22 blood pressure monitor (Blood #1 ea 08/26/22 Pressure Kit) omeprazole 20 mg capsule,delayed 20 mg PO DAILY 90 days #90 caps 09/11/22 release blood sugar diagnostic #100 ea 09/23/22 folic acid 1 mg tablet 1 mg PO DAILY 90 days #90 tabs 09/23/22 ezetimibe 10 mg tablet 10 mg PO DAILY 90 days #90 tabs 01/13/23 metformin 1,000 mg tablet 1,000 mg PO BID 90 days #180 tabs 02/15/23 furosemide 20 mg tablet 20 mg PO DAILY 90 days #90 tabs 02/27/23 lisinopril 20 mg tablet 20 mg PO DAILY #30 tabs 03/28/23 loratadine 10 mg tablet 10 mg PO DAILY #90 tabs 03/30/23 cream base no.105 (bulk) (Base See Rx Instructions miscellaneous 04/07/23 W301 cream) .COMPLEX pain #180 grams rosuvastatin 40 mg tablet 40 mg PO DAILY 90 days #90 tabs 04/14/23 aspirin 81 mg tablet,delayed 81 mg PO DAILY 90 days #90 tabs 04/28/23 release gabapentin 800 mg tablet 800 mg PO TID 30 days #90 tabs 05/08/23 Knee brace #1 ea 05/24/23 oxycodone 10 mg tablet 10 mg PO Q4-6H PRN pain 30 days 06/10/23 #180 tabs dulaglutide 0.75 mg/0.5 mL 0.75 mg (0.5 mL) subcut QWEEK 30 06/12/23 subcutaneous pen injector days #2.5 mL (Trulicity) Allergies Allergy/AdvReac Type Severity Reaction Status Date / Time No Known Allergies Allergy Verified 06/12/23 11:03 Review of Systems Review of Systems: Constitutional: No Fever, No Chills, No Fatigue, No Malaise ENT/Mouth: No Ear Pain, No Nasal Congestion, No sore throat, No Rhinorrhea, No Swallowing Difficulty Eyes: No Eye Pain, No Swelling, No Redness, No Vision Changes Cardiovascular: No Chest Pain, No SOB, No Edema, No Palpitations Respiratory: No Cough, No Sputum, No Dyspnea Gastrointestinal: + Nausea, No Vomiting, No Diarrhea, No Constipation, No Abdominal pain Genitourinary: No irregular bleeding, No Dysuria, No Urinary Frequency, No Hematuria, +chronic Urinary Incontinence, No retention, No Urgency, No Flank Pain Musculoskeletal: + joint pain, + Myalgias, No Joint Swelling Skin: No Skin Lesions, No rash Neuro: + Weakness, No Numbness, + Paresthesias, +Unknown Loss of Consciousness, + lightheaded/dizzy, + Headache Yes all other systems are reviewed and are negative Constitutional: Constitutional: Reports as per HPI Neurologic: Denies Abnormal speech present [facility] Past Medical History Attestation statement: The following information was validated with the patient. Source: old records reviewed Medical History Osteoarthritis of neck Back pain Anxiety and depression History of heart murmur in childhood JUAN on CPAP Knee pain, left Acid reflux Ulnar neuropathy Median neuropathy Hand numbness Diabetes mellitus Essential hypertension Lumbar degenerative disc disease Cervical radiculopathy Osteoarthritis of left knee Surgical History History of total left knee replacement (TKR) History of surgery History of cholecystectomy History of left knee surgery Family History Family History Father Diabetes Hypertension Mother Hypertension Lung cancer Sister Stomach cancer Social History Social History Housing: Apartment Alcohol intake: never Patient Tobacco Use Status: Never used Tobacco Smoked in Last 30 Days: No e-Cigarette/Vaping Use: Never Used Second Hand Smoke Exposure: No Use of substances other than those prescribed or required for medical reasons: No Advance Directives: No Advance Directives Information Provided: No service: No Current occupational status: disabled Cognitive needs: Yes Hearing needs: No Vision needs: No Physical Exam ED Vital Signs: Vital Signs - 24 hr 06/12/23 10:56 06/12/23 11:53 06/12/23 11:53 Temperature 97.5 F 98.2 F Pulse Rate 68 60 70 Respiratory Rate 18 18 18 Blood Pressure 136/64 Pulse Oximetry 97 97 Oxygen Delivery Method Room Air Room Air 06/12/23 12:46 06/12/23 12:47 06/12/23 12:47 Temperature Pulse Rate 57 63 65 Respiratory Rate Blood Pressure 120/62 130/67 127/74 Pulse Oximetry Oxygen Delivery Method 11/03/23 14:00 Temperature 97.9 F Pulse Rate 52 Respiratory Rate 19 Blood Pressure Pulse Oximetry 97 Oxygen Delivery Method Room Air BMI result Body Mass Index 33.4 Const General: cooperative, healthy appearing, comfortable, no acute distress, alert and awake Orientation/consciousness: patient oriented x3 Limitations: no limitations HENMT Head: Yes normal to inspection, Yes atraumatic, No Celeste's sign and No palpable skull fracture Ears: hearing grossly normal bilaterally General nose exam: Normal external nose present Face and sinus: Yes normal facial exam Mouth: Normal oral and palatal mucosa present Throat: Yes posterior oropharynx normal Eyes General: appearance normal, both eyes and all related structures Pupils: Equal, round and reactive pupils present EOM: EOMs intact bilaterally Neck Other: No midline cervical spine tenderness. Bilateral paraspinal tenderness noted Neck: Yes normal visual inspection and Yes no meningeal signs Chest Other: + right-sided anterior lateral rib tenderness noted, no erythema/ecchymosis or flail chest Chest palpation & inspection: normal inspection of the chest, no crepitus and tenderness Resp Effort & Inspection: normal respiratory effort and no respiratory distress Auscultation: clear to auscultation bilaterally and no wheezes Cardio Rate: regular rate Heart sounds: S1 normal heart sound present and S2 normal heart sound present GI Inspection: Yes normal to inspection Palpation (GI): Soft to palpation, nontender, no guarding and not rigid General: Yes no CVA tenderness Back/Spine/Pelvis Other: No midline cervical/thoracic/lumbar spinous tenderness/step-off or deformity. + bilateral thoracic and lumbar paraspinal/MSK tenderness to palpation Back: no CVA tenderness Skin Rashes: no rashes Wounds: no wounds Neuro General: patient oriented x3, gait normal, tone normal, moves all extremities, no meningeal signs, no focal motor deficits and CN's II-XI intact bilaterally Cranial nerves: Yes CN's II-XII intact bilaterally, Yes Equal, round and reactive pupils present and Yes Bilaterally intact EOM present Cognition (Neuro): normal cognition Speech: No Abnormal speech present Gait exam (Neuro): Normal gait present Motor exam (neuro): 5/5 motor strength present throughout, Pronator motor function not present and no tremor noted Coordination: [id number] test normal Romberg Test: Negative Extrem General: Yes normal to inspection, Yes capillary refill normal and Yes no calf tenderness Course Course Course Narrative: This is a rapid medical exam: Additional HPI, ROS, PE not included below will be deferred to primary provider. Patient is a 52-year-old Danish-speaking male presenting to the emergency department with complaint of fall with head injury on Thursday. States he became dizzy and fell backwards onto concrete striking the back of his head. Reports he believes he lost consciousness for around ten minutes but states fall was unwitnessed. Reports that when he attempted to get up he hit the front of his head on the ground because he fell sideways. Reports headaches since as well as neck pain, and bilateral arm weakness. Plan: EKG, labs, CT head and neck, thoracic x-ray -1255--no leukocytosis. H&H stable. Labs otherwise reassuring. Troponin negative CT head/brain wo IV con/CT cervical spine wo IV con/XR thoracic spine 2V IMPRESSION: No acute intracranial process seen. There is no visible acute fracture or dislocation cervical spine. There is mild ventral spondylosis C5-C6 and C6-C7 disc levels. Mild scoliosis dorsal spine otherwise unremarkable dorsal spine x-ray. -orthostatic vital signs negative -1438--patient would like to be discharged. Ribs and lumbar x-rays have not resulted. Patient will sign out AMA, AMA risks discussed with electronic masking system operator. Results discussed with patient including worrisome signs and symptoms and strict return precautions, and when to return to the emergency department. They verbalized understanding and feel safe for discharge at this time. Medications Administered Discontinued Medications Generic Name Dose Route Start Last Admin Trade Name Shanita PRN Reason Stop Dose Admin Acetaminophen 650 mg 06/12/23 12:56 06/12/23 14:17 Acetaminophen 325 Mg Tablet PO 06/12/23 12:57 Not Given ONCE ONE Cyclobenzaprine HCl 5 mg 06/12/23 12:56 06/12/23 14:17 Cyclobenzaprine Hcl 5 Mg Tablet PO 06/12/23 12:57 5 mg ONCE ONE Administration Medical Decision Making Medical Decision Making MDM Narrative: 52-year-old male with a past medical history of anxiety, depression, JUAN on CPAP, GERD, diabetes, HTN, lumbar degenerative disc disease, cervical radiculopathy, osteoarthritis, presenting to the ED complaining of headache and lightheadedness since fall with +head strike 5 days ago. Patient states he became lightheaded/dizzy and fell backwards striking head with unknown LOC, Also reports neck/back pain, right-sided rib pain, and paresthesias to upper and lower extremities. On exam vital signs stable, NAD, nontoxic appearing, no midline spinous tenderness throughout or focal neuro deficits. Paraspinal/MSK cervical and back tenderness noted. Right-sided rib tenderness elicited. Abdomen soft/nontender. No evidence of head trauma. Concern for concussion vs ICH/fractures vs metabolic abnormalities vs orthostasis. Lower suspicion for ACS/PE or dissection. On a croupy demyelinating process or CVA/TIA. Rule out rhabdo. Plan: EKG, labs, head/C-spine CT, x-rays, orthostatics, re-evaluate Please refer to course for remaining clinical decision making, interpretation of labs/imaging results, and discussions with consultants and/or family members. Differential Diagnosis Differential Diagnoses: The differential diagnosis associated with the presentation includes As above Admission/Observation Consideration of admission/observation: Escalation of care including admission/observation considered Lab Data MDM Lab Attestation statement: I reviewed the patient's lab results. 06/12/23 11:33 06/12/23 11:33 Labs: Lab Results 06/12/23 Range/Units 11:33 WBC 8.9 (4.8-10.8) X10*3/uL RBC 4.57 L (4.60-5.80) X10*6/uL Hgb 13.6 L (14.0-18.0) g/dl Hct 39.9 L (42.0-52.0) % MCV 87.3 (80.0-98.0) fL MCH 29.8 (27.0-33.0) pg MCHC 34.1 (31.0-36.0) g/dl RDW 13.0 (11.0-16.0) % Plt Count 235 (160-400) X10*3/uL MPV 9.6 (9.4-12.4) fL Immature Gran % (Auto) 0.5 H (0.0-0.4) % Neut % (Auto) 67.8 (45-73) % Lymph % (Auto) 22.7 (20-40) % [place] % (Auto) 6.9 (2-11) % Eos % (Auto) 1.8 (0-4) % Baso % (Auto) 0.3 (0-2) % Lymph # (Auto) 2.0 (1.2-4.9) X10*3/uL [place] # (Auto) 0.6 (0.1-1.2) X10*3/uL Eos # (Auto) 0.2 (0.0-0.4) X10*3/uL Baso # (Auto) 0.0 (0.0-0.2) X10*3/uL Abs Immat Gran (auto) 0.04 H (0.00-0.03) X10*3/uL Absolute Neuts (auto) 6.0 (2.0-8.3) x10*3/uL Absolute Nucleated RBC 0.000 (0.0-0.012) X10*3/uL Nucleated RBC % (auto) 0.0 (0.0-0.2) /100WBC Sodium 139 (135-145) mmol/L Potassium 3.7 (3.3-5.1) mmol/L Chloride 104 (96-108) mmol/L Carbon Dioxide 25 (22-29) mmol/L Anion Gap 14 (12-20) BUN 7 L (9-16) mg/dL Creatinine 0.90 (0.5-1.4) mg/dL Estim Creat Clear Calc 109.9 Estimated GFR > 60 Random Glucose 224 H (60-115) mg/dL Calcium 9.2 (8.4-10.2) mg/dL Magnesium 1.7 (1.6-2.6) mg/dL Total Bilirubin 0.4 (0.0-1.0) mg/dL AST 21 (5-37) U/L ALT 28 (0-40) U/L Alkaline Phosphatase 48 (39-117) U/L Total Creatine Kinase 182 H (38-174) U/L Troponin I High Sens < 2.7 (<3.5-35.0) ng/L Total Protein 7.3 (6.5-8.0) g/dL Albumin 3.9 (3.5-5.0) g/dL Independent Interpretation I performed an independent interpretation of an: EKG (My interpretation EKG normal sinus rhythm rate of 60. Pr interval 162. QTC 428. No significant change when compared to prior. No STEMI), Plain X-Ray and CT Scan Radiology Impression Discussion of test interpretation with radiology: I have reviewed the radiologist's reading. External Record Review External record reviewed: Inpatient record, Office record, Outpatient record, Prior outpatient labs, Prior outpatient radiology, Primary care record and Outside ED record Tests considered The following testing was considered but not selected: As above Prescription Management I considered prescription management with: Pain Medication Chronic Conditions Patient?s care impacted by: Diabetes and Hypertension Discharge Plan Discharge Clinical Impression: Concussion, Head injury, Back pain, Rib pain on right side Patient Disposition: Left Against Medical Advice Instructions: Concussion (ED), Head Injury (ED), Acute Low Back Pain (ED) Additional Instructions: You are leaving against medical advice. You are always welcome to return to the emergency department. your blood work looks okay. The x-rays of your ribs and low back have not resulted Your head CT is unremarkable. In you have no fracture or dislocation appreciated in her cervical spine Please follow-up with your doctor. If symptoms persist or worsen return to the ED Te octoberas en contra del consejo m?dico. Siempre ser? denzel a regresar al departamento de emergencias. Tu an?lisis de gabrielle se ve petey. Las radiograf?as de tus costillas y espalda baja no cooper dado resultado. Bray tomograf?a computarizada de radha no tiene nada especial. No se aprecia fractura ni luxaci?n en bray columna cervical. Por favor ida un seguimiento con bray m?dico. Si los s?ntomas persisten o empeoran, regrese al servicio de urgencias. Prescriptions: No Action (DME) lancets 28 gauge misc See Rx Instructions topical TID Qty: 100 11RF Rx Instructions: As directed omeprazole 20 mg capsule,delayed release(DR/EC) 20 mg PO DAILY 90 Days Qty: 90 3RF folic acid 1 mg tablet 1 mg PO DAILY 90 Days Qty: 90 2RF (DME) blood sugar diagnostic Strip See Rx Instructions Not Applicable BID Qty: 100 3RF Rx Instructions: Use 1 freestyle test strips once a day metformin 1,000 mg tablet 1,000 mg PO BID 90 Days Qty: 180 1RF furosemide 20 mg tablet 20 mg PO DAILY 90 Days Qty: 90 1RF lisinopril 20 mg tablet 20 mg PO DAILY Qty: 30 6RF loratadine 10 mg tablet 10 mg PO DAILY Qty: 90 1RF rosuvastatin 40 mg tablet 40 mg PO DAILY 90 Days Qty: 90 1RF aspirin 81 mg tablet,delayed release (DR/EC) 81 mg PO DAILY 90 Days Qty: 90 3RF gabapentin 800 mg tablet 800 mg PO TID 30 Days Qty: 90 4RF (DME) Knee brace Misc See Rx Instructions .Route Qty: 1 0RF Rx Instructions: As directed oxycodone 10 mg tablet 10 mg PO Q4-6H PRN (Reason: pain) 30 Days Qty: 180 0RF Trulicity 0.75 mg/0.5 mL pen injector 0.75 mg subcut QWEEK 30 Days Qty: 2.5 3RF zolpidem 10 mg tablet 10 mg PO BEDTIME PRN (Reason: Sleep) clonazepam 2 mg tablet 1 mg PO BID PRN (Reason: Anxiety) buspirone 5 mg tablet 5 mg PO TID duloxetine 60 mg capsule,delayed release(DR/EC) 60 mg PO DAILY Tradjenta 5 mg tablet 5 mg PO DAILY Qty: 30 6RF (DME) blood pressure monitor [Blood Pressure Kit] Kit See Rx Instructions .Route Qty: 1 0RF Rx Instructions: As directed docusate sodium 100 mg capsule 100 mg PO BEDTIME Qty: 90 3RF ezetimibe 10 mg tablet 10 mg PO DAILY 90 Days Qty: 90 1RF sennosides [Natural Senna Laxative] 8.6 mg tablet 17.2 mg PO BEDTIME Qty: 90 3RF bisacodyl [Dulcolax (bisacodyl)] 5 mg tablet,delayed release (DR/EC) 10 mg PO ONCE 1 Days Qty: 2 0RF Rx Instructions: take 2 tabs at noon the day before your colonoscopy polyethylene glycol 3350 [Miralax] 17 gram/dose powder 238 g PO ONCE Qty: 238 0RF Rx Instructions: As directed by gastroenterology department at [facility] Base W301 Cream See Rx Instructions miscellaneous .COMPLEX Qty: 180 0RF Rx Instructions: Diclofenac 5%, Baclofen 5%, Cyclobenzaprine 2%, Gabapentin 6%, Bupivacaine 2% SIG: apply pea-sized amount 3-5 times daily to painful areas as needed Referrals: Jennifer Beltran MD [Primary Care Provider] - 3 days Stand Alone Forms: Against Medical Advice Interventions: ED Discharge Assessment Last Done: 06/12/23 15:11 Discharge Date/Time: 06/12/23 15:11 Print Language: Danish
--- NOTE | 2023-06-12 11:05 | ECG_ITS ---
Test Reason : CHEST PRESSURE Blood Pressure : / mmHG Vent. Rate : 060 BPM Atrial Rate : 060 BPM P-R Int : 162 ms QRS Dur : 082 ms QT Int : 428 ms P-R-T Axes : 065 021 020 degrees QTc Int : 428 ms Normal sinus rhythm Normal ECG When compared with ECG of 22-JUL-2018 11:17, No significant change was found Referred By: Joy Greco Electronically Signed By:YENNI CALDERA MD
[2023-06-12 11:38] LABS: MANUAL DIFF FLAG NO
[2023-06-12 11:43] LABS: Basophils Percent Auto 0.3 % (0-2); Eosinophils Absolute Auto 0.2 X10*3/uL (0.0-0.4); Eosinophils Percent Auto 1.8 % (0-4); Hematocrit 39.9 % (42.0-52.0); Hemoglobin 13.6 g/dl (14.0-18.0); Imm Gran Abs Auto 0.04 X10*3/uL (0.00-0.03); Imm Gran Pct Auto 0.5 % (0.0-0.4); Lymphocytes Percent Auto 22.7 % (20-40); Mean Corpuscular HGB Conc 34.1 g/dl (31.0-36.0); Mean Corpuscular Hemoglobin 29.8 pg (27.0-33.0); Mean Corpuscular Volume 87.3 fL (80.0-98.0); Mean Platelet Volume 9.6 fL (9.4-12.4); Monocytes Absolute Auto 0.6 X10*3/uL (0.1-1.2); Monocytes Percent Auto 6.9 % (2-11); Neutrophils Percent Auto 67.8 % (45-73); Platelet Count 235 X10*3/uL (160-400); Red Blood Count 4.57 X10*6/uL (4.60-5.80); White Blood Count 8.9 X10*3/uL (4.8-10.8)
[2023-06-12 11:53] VITALS: PULSE 60; PULSE 70; RESP 18; TEMP 36.8; O2SAT 97
[2023-06-12 11:54] LABS: Alanine Aminotransferase 28 U/L (0-40); Albumin Level 3.9 g/dL (3.5-5.0); Alkaline Phosphatase 48 U/L (39-117); Anion Gap 14 (12-20); Aspartate Amino Transferase 21 U/L (5-37); Bilirubin Total 0.4 mg/dL (0.0-1.0); Blood Urea Nitrogen 7 mg/dL (9-16); Calcium 9.2 mg/dL (8.4-10.2); Carbon Dioxide 25 mmol/L (22-29); Chloride 104 mmol/L (96-108); Creatinine Clr Calc Pharmacy 109.9; Estimated Glomerular Filt Rate > 60; Glucose Random 224 mg/dL (60-115); Potassium 3.7 mmol/L (3.3-5.1); Sodium 139 mmol/L (135-145); Total Protein 7.3 g/dL (6.5-8.0)
--- NOTE | 2023-06-12 12:00 | PC.NURSE ---
beata Germain at bedside- trailer tank truck driver present- pt pass swallow eval. no overt focal deficits noted. no distress observed. talks w/o issue
[2023-06-12 12:30] LABS: Magnesium 1.7 mg/dL (1.6-2.6)
[2023-06-12 12:38] LABS: Troponin-I High Sensitivity < 2.7 ng/L (<3.5-35.0)
[2023-06-12 12:46] VITALS: BP 120/62; PULSE 57
[2023-06-12 12:47] VITALS: BP 127/74; BP 130/67; PULSE 63; PULSE 65
[2023-06-12 14:00] VITALS: PULSE 52; RESP 19; TEMP 36.6; O2SAT 97
[2023-06-12] MEDS: Cyclobenzaprine HCl 5 MG TABLET PO (14:17)
== END 2023-06-12 15:11 | disposition left against medical advice (07) ==
PROVIDERS: Physician Assistant; Registered Nurse Emergency; Emergency Provider Emergency Medicine; PCP Internal Medicine
DX: S06.0X0A Concussion without loss of consciousness, initial encounter (principal); G47.33 Obstructive sleep apnea (adult) (pediatric); R42 Dizziness and giddiness; R51.9 Headache, unspecified; M54.50 Low back pain, unspecified; R07.89 Other chest pain; W01.10XA Fall on same level from slipping, tripping and stumbling with subsequent striking against unspecified object, initial encounter; Y93.9 Activity, unspecified; Y92.9 Unspecified place or not applicable; Y99.9 Unspecified external cause status; Z79.899 Other long term (current) drug therapy
CPT/HCPCS: 36415; 70450; 71101; 72070; 72100; 72125; 80053; 82550; 83735; 84484; 85025; 93005; 99284; 99285

== ENCOUNTER 2023-08-24 10:09 | Outpatient (REF) | payer OTHER, SELFPAY ==
[2023-08-24 11:47] LABS: Microalbum/Creatinine Ratio Ur 4.2 ug/mg cr (<30)
[2023-08-24 12:02] LABS: Alanine Aminotransferase 50 U/L (0-40); Albumin Level 4.1 g/dL (3.5-5.0); Alkaline Phosphatase 49 U/L (39-117); Anion Gap 12 (12-20); Aspartate Amino Transferase 29 U/L (5-37); Bilirubin Total 0.5 mg/dL (0.0-1.0); Blood Urea Nitrogen 8 mg/dL (9-16); Calcium 9.5 mg/dL (8.4-10.2); Carbon Dioxide 29 mmol/L (22-29); Chloride 103 mmol/L (96-108); Cholesterol 179 mg/dL (<200); Estimated Glomerular Filt Rate > 60; Glucose Fasting 143 mg/dL (60-99); HDL Cholesterol 48 mg/dL (>40); LDL Cholesterol Calculated 104 mg/dL (<100); Potassium 3.5 mmol/L (3.3-5.1); Sodium 140 mmol/L (135-145); Total Protein 7.7 g/dL (6.5-8.0); Triglycerides 135 mg/dL (<150)
== END 2023-08-24 10:10 | disposition home or self-care (01) ==
LOC: HO.LAB 10:09
PROVIDERS: PCP Internal Medicine; Visit Provider Internal Medicine
DX: E11.9 Type 2 diabetes mellitus without complications (principal); E55.9 Vitamin D deficiency, unspecified; E78.5 Hyperlipidemia, unspecified
CPT/HCPCS: 36415; 80053; 80061; 82043; 82306; 82570

== ENCOUNTER 2024-01-06 08:02 | Outpatient (REF) | payer OTHER, SELFPAY ==
--- NOTE | ~2024-01-06 | XR_ITS ---
EXAMINATION: XR KNEE, LEFT CLINICAL INFORMATION: Pain in left knee. COMPARISON: 08/18/2019 TECHNIQUE: AP and lateral of the left knee. FINDINGS: The bones are diffusely demineralized. Redemonstration of left total knee arthroplasty. Stable chronic irregularity of the imaged proximal tibia. Hardware appears intact. Joint effusion present. There are increased ossifications/calcifications which project over the patellofemoral space on the lateral view, but at least the largest of which appears to be located along the medial aspect of the medial compartment on the frontal view. XR/XR knee LT 2V IMPRESSION: 1. Redemonstration of left total knee arthroplasty. Hardware appears intact. 2. Joint effusion present. 3. Increased ossifications/calcifications which project over the patellofemoral space on the lateral view, but at least the largest of which appears to be located along the medial aspect of the medial compartment on the frontal view.
--- NOTE | ~2024-01-06 | XR_ITS ---
EXAMINATION: XR FOOT, LEFT CLINICAL INFORMATION: Pain in left foot. COMPARISON: None available. TECHNIQUE: AP, lateral, and oblique views of the left foot. FINDINGS: Small focal area of sclerosis at the base of the 1st proximal phalanx. Mild degenerative changes with joint space narrowing and hypertrophic change in the 1st metatarsophalangeal joint. XR/XR foot LT 2V IMPRESSION: 1. Small focal area of sclerosis at the base of the 1st proximal phalanx. Mild degenerative changes with joint space narrowing and hypertrophic change in the 1st metatarsophalangeal joint. 2. Recommend follow up imaging in 10-14 days if fracture is suspected.
[2024-01-06 09:54] LABS: Alanine Aminotransferase 41 U/L (0-40); Alkaline Phosphatase 44 U/L (39-117); Anion Gap 12 (12-20); Aspartate Amino Transferase 25 U/L (5-37); Bilirubin Total 0.6 mg/dL (0.0-1.0); Blood Urea Nitrogen 7 mg/dL (9-16); Calcium 8.9 mg/dL (8.4-10.2); Carbon Dioxide 24 mmol/L (22-29); Chloride 107 mmol/L (96-108); Cholesterol 177 mg/dL (<200); Estimated Glomerular Filt Rate > 60; Glucose Fasting 193 mg/dL (60-99); HDL Cholesterol 51 mg/dL (>40); LDL Cholesterol Calculated 97 mg/dL (<100); Potassium 3.7 mmol/L (3.3-5.1); Sodium 139 mmol/L (135-145); Total Protein 7.2 g/dL (6.5-8.0); Triglycerides 145 mg/dL (<150)
[2024-01-06 10:36] LABS: Microalbum/Creatinine Ratio Ur 5.6 ug/mg cr (<30)
== END 2024-01-06 08:03 | disposition home or self-care (01) ==
LOC: HO.XRAY 08:02
PROVIDERS: PCP Internal Medicine; Visit Provider Internal Medicine
DX: E11.9 Type 2 diabetes mellitus without complications (principal); E78.5 Hyperlipidemia, unspecified; M25.562 Pain in left knee; M79.672 Pain in left foot
CPT/HCPCS: 36415; 73560; 73620; 80053; 80061; 82043; 82570

== ENCOUNTER 2024-02-02 16:21 | Outpatient (AMB) | payer OTHER, SELFPAY ==
--- NOTE | 2024-02-02 16:24 | A.OFFPC_ITS ---
Vital Signs 02/02/24 16:28 Height 5 ft 8 in Weight 260 lb BMI 39.5 BP 130/70 Blood Pressure Location Lt brachial Position Sitting Intake Visit Reasons: Chronic back pain/DM NEEDS A1C Intake Note: Patient here for a follow up back pain, DM Rooter Operator Required: No Accompanied by: Self / Same As Patient Allergies No Known Allergies Allergy (Verified 02/02/24 16:40) Medication List - Last Reconciled 02/02/24 by Jennifer Galvin MD aspirin 81 mg PO DAILY 90 days bisacodyl (Dulcolax (bisacodyl)) 10 mg (2 x 5 mg) PO ONCE 1 day blood pressure monitor (Blood Pressure Kit) As directed blood sugar diagnostic Use 1 freestyle test strips once a day buspirone 5 mg PO TID clonazepam 1 mg PO BID PRN cream base no.105 (bulk) (Base W301 cream) Diclofenac 5%, Baclofen 5%, Cyclobenzaprine 2%, Gabapentin 6%, Bupivacaine 2% SIG: apply pea-sized amount 3- 5 times daily to painful areas as needed docusate sodium 100 mg PO BEDTIME dulaglutide (Trulicity) 0.75 mg (0.5 mL) subcut QWEEK 30 days duloxetine 60 mg PO DAILY ezetimibe 10 mg PO DAILY 90 days folic acid 1 mg PO DAILY 90 days furosemide 20 mg PO DAILY 90 days gabapentin 800 mg PO TID 30 days Knee brace As directed lancets As directed linagliptin (Tradjenta) 5 mg PO DAILY lisinopril 20 mg PO DAILY loratadine 10 mg PO DAILY metformin 1,000 mg PO BID 90 days omeprazole 20 mg PO DAILY 90 days oxycodone 10 mg PO Q4-6H PRN 30 days polyethylene glycol 3350 (Miralax) 238 grams PO ONCE rosuvastatin 40 mg PO DAILY 90 days sennosides (Natural Senna Laxative) 17.2 mg (2 x 8.6 mg) PO BEDTIME zolpidem 10 mg PO BEDTIME PRN Tobacco use date assessed: 02/02/24 Dental Screening Dental Screen Date: 02/02/24 Did you have a dental visit in the last 12 months?: No Did you have a dental problem in the last 6 months where you did not have access to dental care?: No Was dental information given to patient?: Patient has dentist HPI HPI Comments History of Present Illness Details This is a 53-year-old male with diabetes mellitus type 2, hypertension, hyperlipidemia and mild recurrent major depression with anxiety that comes today still complaining of left knee pain and left foot pain. X-ray showed discussed. Will be referred to ortho for his knee and podiatry for his foot. Able to walk with no assistive device. A1c elevated and I will discontinue Trulicity and Tradjenta. He will start Jardiance and Ozempic. A1c goal is equal or less than 7%. LDL has improved but still elevated. Blood pressure stable. Depression with anxiety are follow by Psychiatry and follow-up visit was requested. No chest pain or shortness on breath. Walk with no assistive device. [facility] Medical History (Updated 02/02/24 @ 20:07 by Jennifer Galvin MD) Osteoarthritis of neck Back pain Anxiety and depression History of heart murmur in childhood JUAN on CPAP Knee pain, left Acid reflux Ulnar neuropathy Median neuropathy Hand numbness Diabetes mellitus Essential hypertension Lumbar degenerative disc disease Cervical radiculopathy Osteoarthritis of left knee Surgical History History of total left knee replacement (TKR) History of surgery History of cholecystectomy History of left knee surgery Family History Father Diabetes Hypertension Mother Hypertension Lung cancer Sister Stomach cancer Social History Housing: Apartment Alcohol intake: never Patient Tobacco Use Status: Never used Tobacco e-Cigarette/Vaping Use: Never Used Second Hand Smoke Exposure: No service: No Current occupational status: disabled Cognitive needs: Yes Hearing needs: No Vision needs: No Questionnaire PHQ-9 Over the last 2 weeks, how often have you been bothered by any of the following problems? 1. Little interest or pleasure in doing things: several days 2. Feeling down, depressed, or hopeless: several days 3. Trouble falling or staying asleep, or sleeping too much: not at all 4. Feeling tired or having little energy: several days 5. Poor appetite or overeating: several days 6. Feeling bad about yourself - or that you are a failure or have let yourself or your family down: not at all 7. Trouble concentrating on things, such as reading the newspaper or watching television: several days 8. Moving or speaking so slowly that other people could have noticed. Or the opposite - being so fidgety or restless that you have been moving around a lot more than usual: several days 9. Thoughts that you would be better off or of hurting yourself in some way: not at all Total score: 6 Depression Screening Interpretation: Positive Depression Screening Follow-up: Existing condition, Community Mental Health Worker F/U and Follow-up Visit Requested Depression Screening Done: Yes 21889 - PHQ-9 Billing: Yes Source: Developed by Drs. Guillaume Corea, Jordana Robertson, Froilan Aguilar and colleagues, with an educational radhika from [employer]. Thrive Questionnaire Date Thrive assessed: 02/02/24 I am a: Patient What is your living situation today?: I have a steady place to live Within the past 12 months, did the food you bought not last and you didn't have the money to get more?: Never true Within the past 12 months, did you worry whether your food would run out before you got money to buy more?: Never true Do you have trouble paying for medicines?: No Do you have trouble getting transportation to medical appointments?: No Do you have trouble paying your heating and electricity bill?: No Do you have trouble taking care of your child, family member or friend?: No Do you have trouble with day-to-day activities such as bathing, preparing meals, shopping, managing finances, etc.?: No Are you currently unemployed and looking for a job?: No Are you interested in more education?: No Please select the resources that you would like help with: None Currently or been in a relationship where the following occur: no concerns reported THRIVE Score: 0 AUDIT C Alcohol Use Questionnaire (AUDIT-C) 1. How often do you have a drink containing alcohol?: Never Total Score: 0 Score Reviewed/Action Taken: No LOBO-7 AMB Questionnaire LOBO-7 Date LOBO - 7 assessed: 02/02/24 Feeling nervous, anxious, or on edge: 1 = Several days Not being able to stop or control worryin = Not at all Worrying too much about different things: 0 = Not at all Trouble relaxin = Several days Being so restless that it is hard to sit still: 1 = Several days Becoming easily annoyed or irritable: 0 = Not at all Feeling afraid as if something awful might happen: 1 = Several days Total LOBO-7 score (0-4 normal; 5-9 mild; 10-14 moderate; 15-21 severe): 4 Source: Developed by Drs. Guillaume Corea, Jordana Robertson, Froilan Aguilar and colleagues, with an educational radhika from [employer]. LOBO-7 Assessment Billing LOBO-7 Assessment Tool: LOBO-7 Assessment 36872 Review of Systems Const All systems reviewed & are unremarkable except as noted in HPI and below Card Denies chest pain at rest, Denies chest pain with activity, Denies edema, Denies irregular heart rhythm, Denies claudication, Denies dyspnea, Denies dyspnea on exertion, Denies orthopnea, Denies paroxysmal nocturnal dyspnea and Denies slow heart rate Resp Denies cough, Denies dyspnea and Denies dyspnea on exertion Musc Reports arthralgias Physical exam (Primary Care) Vital Signs: Last Vital Signs BP 130/70 02/02/24 16:28 BMI result Body Mass Index 39.5 BMI Assessment/Plan discussion: High BMI High, discussed plan: lifestyle, weight reduction, dietary and physical activity Tobacco/Smoking Status: Tobacco use Status Tobacco use date assessed 02/02/24 02/02/24 16:34 Patient Tobacco Use Status Never used Tobacco 02/02/24 16:26 e-Cigarette/Vaping Use Never Used 02/02/24 16:26 PHQ-9: PHQ-9 Score PHQ-9: Total score 6 02/02/24 16:45 Depression Screening Interpretation: Positive Depression Screening Follow-up: Existing condition, Community Mental Health Worker F/U and Follow-up Visit Requested Thrive Assessment: Date of Thrive Assessment Date Thrive assessed 02/02/24 02/02/24 16:34 Currently or been in a relationship where the following occur: no concerns reported Resp Effort & Inspection: normal respiratory effort Auscultation: clear to auscultation bilaterally Cardio Jugular venous distension: no JVD Rate: regular rate Rhythm: regular rhythm Heart sounds: S1 normal heart sound present and S2 normal heart sound present Extrem General: Yes full ROM Results AMB Hemoglobin A1c AMB Hemoglobin A1c 8.0 % Last Edit by DAVID Ty on 02/02/24 16:3 9 Results Reviewed Results Reviewed: Laboratory Last Values Hgb A1c (Clinic) 8.0 % (4.0-6.0) H 02/02/24 16:23 Assessment and Plan Assessment & Plan (1) Mild recurrent major depression: Code(s): F33.0 - Major depressive disorder, recurrent, mild Plan: Continue duloxetine. Follow-up with psychiatry. (2) Diabetes mellitus: Code(s): E11.9 - Type 2 diabetes mellitus without complications Qualifiers: Diabetes mellitus type: type 2 Diabetes mellitus predatory animal exterminator insulin use: without predatory animal exterminator use Diabetes mellitus complication status: without complication Qualified Code(s): E11.9 - Type 2 diabetes mellitus without complications Plan: Discontinue Trulicity and Tradjenta. Start Jardiance and Ozempic. Continue metformin. A1c goal is equal or less than 7%. (3) Essential hypertension: Code(s): I10 - Essential (primary) hypertension Plan: Continue lisinopril. Blood pressure goal is equal or less than 130/80. (4) Hyperlipidemia LDL goal <70: Code(s): E78.5 - Hyperlipidemia, unspecified Plan: Continue statins and Zetia. LDL goal is less than 70. (5) Knee pain, left: Code(s): M25.562 - Pain in left knee Qualifiers: Chronicity: chronic Qualified Code(s): M25.562 - Pain in left knee; G89.29 - Other chronic pain Plan: Referred to Ortho. (6) Left foot pain: Code(s): M79.672 - Pain in left foot Plan: Referred to Podiatry. (7) LOBO (generalized anxiety disorder): Code(s): F41.1 - Generalized anxiety disorder Plan: Continue buspirone and benzodiazepines. Follow-up with psychiatry. Orders: Orders AMB Hemoglobin A1c Today E11.9 - Type 2 diabetes mellitus without complications Microalbumin, Random (w Creat) 4 Months E11.9 - Type 2 diabetes mellitus without complications Complete Blood Count Auto Diff 4 Months D64.9 - Anemia, unspecified Vitamin B12 and Folate 4 Months E53.8 - Deficiency of other specified B group vitamins Lipid Panel 4 Months E78.5 - Hyperlipidemia, unspecified Comprehensive State [place]. Panel Fast 4 Months E11.9 - Type 2 diabetes mellitus without complications IRON PROFILE 4 Months D64.9 - Anemia, unspecified Referrals Podiatry Referral M79.672 - Pain in left foot Orthopedics Referral M25.562 - Pain in left knee Medications: New empagliflozin (Jardiance) 10 mg PO DAILY 90 days 90 tabs 1RF semaglutide (Ozempic) for 4 weeks 0.25 mg (0.368 mL) subcut QWEEK 4 weeks 1.472 mL 0RF E11.9 - Type 2 diabetes mellitus without complications Discontinued linagliptin (Tradjenta) Discontinued Reason: Patient Completed Course 5 mg PO DAILY 30 tabs 6RF dulaglutide (Trulicity) Discontinued Reason: Patient Completed Course 0.75 mg (0.5 mL) subcut QWEEK 30 days 2.5 mL 3RF E11.9 - Type 2 diabetes mellitus without complications Coding Level of Care Code Est Pt Level 4 (47938) Complex EM visit Add On G2211 Diagnoses Mild recurrent major depression F33.0 Type 2 diabetes mellitus without complication, without long-term current use of insulin E11.9 Diabetes mellitus type: type 2 Diabetes mellitus predatory animal exterminator insulin use: without mcfp use Diabetes mellitus complication status: without complication Essential hypertension I10 Hyperlipidemia LDL goal <70 E78.5 Chronic pain of left knee M25.562; G89.29 Chronicity: chronic Left foot pain M79.672 LOBO (generalized anxiety disorder) F41.1 Additional Codes LOBO-7 Assessment Billing - LOBO-7 Assessment Tool: LOBO-7 Assessment [id number] ([id number]) Time Spent (min) 25
[2024-02-02 16:28] VITALS: BP 130/70; BMI 39.5
== END 2024-02-02 16:48 | disposition home or self-care (01) ==
PROVIDERS: PCP Internal Medicine; Visit Provider Internal Medicine
DX: E11.69 Type 2 diabetes mellitus with other specified complication (principal); F33.0 Major depressive disorder, recurrent, mild; I10 Essential (primary) hypertension; E78.5 Hyperlipidemia, unspecified; M25.562 Pain in left knee; G89.29 Other chronic pain; M79.672 Pain in left foot; F41.1 Generalized anxiety disorder
CPT/HCPCS: 83036; 99214; G2211

== ENCOUNTER 2024-03-15 12:47 | Outpatient (AMB) | payer OTHER, SELFPAY ==
--- NOTE | 2024-03-15 13:03 | A.OFFVIS_ITS ---
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 Patient reports bilateral knee pain with his left knee being the worse, states causing ankle pain as well. Denies injury. He takes gabapentin and oxycodone to help with his pain. Hx of left total knee surgery in [address] Arteaga. Structural Shop Helper Name: Riccardo ID #[id number] Allergies No Known Allergies Allergy (Verified 03/15/24 13:05) Medication List - Last Reconciled 03/15/24 by Wayne Reynolds MD aspirin 81 mg PO DAILY 90 days bisacodyl (Dulcolax (bisacodyl)) 10 mg (2 x 5 mg) PO ONCE 1 day blood pressure monitor (Blood Pressure Kit) As directed blood sugar diagnostic Use 1 freestyle test strips once a day buspirone 5 mg PO TID clonazepam 1 mg PO BID PRN cream base no.105 (bulk) (Base W301 cream) Diclofenac 5%, Baclofen 5%, Cyclobenzaprine 2%, Gabapentin 6%, Bupivacaine 2% SIG: apply pea-sized amount 3- 5 times daily to painful areas as needed docusate sodium 100 mg PO BEDTIME duloxetine 60 mg PO DAILY empagliflozin (Jardiance) 10 mg PO DAILY 90 days ezetimibe 10 mg PO DAILY 90 days folic acid 1 mg PO DAILY 90 days furosemide 20 mg PO DAILY 90 days gabapentin 800 mg PO TID 30 days Knee brace As directed lancets As directed lisinopril 20 mg PO DAILY loratadine 10 mg PO DAILY metformin 1,000 mg PO BID 90 days omeprazole 20 mg PO DAILY 90 days oxycodone 10 mg PO Q4-6H PRN 30 days polyethylene glycol 3350 (Miralax) 238 grams PO ONCE rosuvastatin 40 mg PO DAILY 90 days semaglutide (Ozempic) 0.5 mg (0.736 mL) subcut QWEEK 4 weeks sennosides (Natural Senna Laxative) 17.2 mg (2 x 8.6 mg) PO BEDTIME tirzepatide (Mounjaro) 2.5 mg (0.5 mL) subcut QWEEK 4 weeks zolpidem 10 mg PO BEDTIME PRN PFSH Medical History (Updated 02/08/24 @ 13:04 by Jennifer Galvin MD) Osteoarthritis of neck Back pain Anxiety and depression History of heart murmur in childhood JUAN on CPAP Knee pain, left Acid reflux Ulnar neuropathy Median neuropathy Hand numbness Diabetes mellitus Essential hypertension Lumbar degenerative disc disease Cervical radiculopathy Osteoarthritis of left knee Surgical History History of total left knee replacement (TKR) History of surgery History of cholecystectomy History of left knee surgery Family History Father Diabetes Hypertension Mother Hypertension Lung cancer Sister Stomach cancer Social History Housing: Apartment Alcohol intake: never Patient Tobacco Use Status: Never used Tobacco e-Cigarette/Vaping Use: Never Used Second Hand Smoke Exposure: No service: No Current occupational status: disabled Cognitive needs: Yes Hearing needs: No Vision needs: No Physical Exam Vital Signs: BMI result Body Mass Index 39.5 Const Other: Well-nourished well-developed very friendly male awake alert and oriented x3 in no acute distress Extrem Other: Bilateral lower extremity examination shows good capillary refill, no skin lesions noted, normal sensation light touch Left knee examination shows that the surgical incision is well healed, no erythema, range of motion from -3 degrees to 100 degrees, no instability Results Reviewed Results Reviewed: X-rays of the patient's left knee show knee arthroplasty with possible lucency around the stem of the tibial component, no gross loosening Assessment & Plan Assessment & Plan (1) Knee pain, left: Code(s): M25.562 - Pain in left knee Category: Medical Qualifiers: Chronicity: chronic Qualified Code(s): M25.562 - Pain in left knee; G89.29 - Other chronic pain Plan Mr. Surjit Barnes presents with continued left knee pain after undergoing left total knee replacement surgery by Dr. Arteaga in 2019 possibly due to loosening of his tibial component. Thus, I will send the patient for a CT scan of his left knee for further evaluation. I will contact him by phone once the imaging study is completed. Feel free to call me at any time should questions regarding his orthopedic management arise. I spent 21 minutes in reviewing the patient's records and imaging studies, seeing the patient and documenting in the medical record. Orders: Orders CT knee LT wo IV con Today G89.29 - Other chronic pain, M25.562 - Pain in left knee Coding Level of Care Code New Pt Level 3 (57909) Diagnoses Chronic pain of left knee M25.562; G89.29 Chronicity: chronic
[2024-03-15 13:10] VITALS: BMI 39.5
== END 2024-03-15 13:16 | disposition home or self-care (01) ==
PROVIDERS: PCP Internal Medicine; Visit Provider Orthopaedic Surgery
DX: M25.562 Pain in left knee (principal); G89.29 Other chronic pain; Z96.652 Presence of left artificial knee joint
CPT/HCPCS: 99203

== ENCOUNTER → 2024-03-15 12:47 | Outpatient (BNVA) | payer OTHER, SELFPAY | PROVIDERS: PCP Internal Medicine; Visit Provider Orthopaedic Surgery | DX: M25.562 Pain in left knee (principal); G89.29 Other chronic pain | CPT/HCPCS: 99202 ==

== ENCOUNTER 2024-09-07 09:40 | Outpatient (REF) | payer OTHER, SELFPAY ==
[2024-09-07 10:05] LABS: MANUAL DIFF FLAG NO
[2024-09-07 11:04] LABS: Basophils Absolute Auto 0.1 X10*3/uL (0.0-0.2); Basophils Percent Auto 0.6 % (0-2); Eosinophils Absolute Auto 0.1 X10*3/uL (0.0-0.4); Eosinophils Percent Auto 1.3 % (0-4); Hematocrit 45.1 % (42.0-52.0); Hemoglobin 15.2 g/dl (14.0-18.0); Imm Gran Abs Auto 0.06 X10*3/uL (0.00-0.03); Imm Gran Pct Auto 0.7 % (0.0-0.4); Lymphocytes Percent Auto 24.1 % (20-40); Mean Corpuscular HGB Conc 33.7 g/dl (31.0-36.0); Mean Corpuscular Hemoglobin 30.6 pg (27.0-33.0); Mean Corpuscular Volume 90.9 fL (80.0-98.0); Mean Platelet Volume 10.1 fL (9.4-12.4); Monocytes Absolute Auto 0.8 X10*3/uL (0.1-1.2); Monocytes Percent Auto 9.2 % (2-11); Neutrophils Absolute Auto 5.3 x10*3/uL (2.0-8.3); Neutrophils Percent Auto 64.1 % (45-73); Platelet Count 212 X10*3/uL (160-400); Red Blood Count 4.96 X10*6/uL (4.60-5.80); White Blood Count 8.3 X10*3/uL (4.8-10.8)
--- OUTSIDE RECORDS SUMMARY | 2024-09-07 11:19 | XMS_ITS | Clinical Summary ---
Author Organization [facility] ity Address [address] [place] [address] Care Team Providers Care Construction Manager Name Role Phone Unavailable Primary Care Provider Unavailabl e Social History Tobacco Use Types Packs/Day Years Used Date Smoking Tobacco: Never Assessed Sex and Gender Information Value Date Recorded Sex Assigned at Not on file Gender Identity Not on file Sexual Orientation Not on file Plan of Treatment Health Maintenance Due Date Last Done Comments DTaP,Tdap,and Td Vaccines (1 - Tdap) 1989 Hepatitis B Vaccines (1 of 3 - 19+ 3-dose series) 1989 Zoster Vaccines (1 of 2) 2020 Cholesterol Screening (Lipid Panel) 09/04/2023 Colorectal Cancer Screening: Colonoscopy 09/04/2023 Depression Screening 09/04/2023 HIV Screening 09/04/2023 Hepatitis C Screening 09/04/2023 Social Influencers of Health Screening 09/04/2023 COVID-19 Vaccine ( - 2023-2 5 season) 2024 Influenza Vaccine (#1) 2024 HIB Vaccines Aged Out No longer eligi ble based on patient's age to complete this topic HPV Vaccines Aged Out No longer eligi ble based on patient's age to complete this topic Hepatitis A Vaccines Aged Out No long er eligible based on patient's age to complete this topic IPV Vaccines Aged Out No longer eligi ble based on patient's age to complete this topic MMR Vaccines Aged Out No longer eligi ble based on patient's age to complete this topic Meningococcal ACWY Vaccine Aged Out N o longer eligible based on patient's age to complete this topic Pneumococcal Vaccine: Pediat rics (0 to 5 Years) and At-Risk Patients (6 to 64 Years) Aged Out No longer eligible b ased on patient's age to complete this topic RSV Immunization Patients Un meir 20 months Aged Out No longer eligible b ased on patient's age to complete this topic Varicella Vaccines Aged Out No longer eligible based on patient's age to complete this topic
[2024-09-07 11:56] LABS: Alanine Aminotransferase 66 U/L (0-40); Alkaline Phosphatase 45 U/L (39-117); Anion Gap 12 (12-20); Aspartate Amino Transferase 42 U/L (5-37); Bilirubin Total 0.6 mg/dL (0.0-1.0); Blood Urea Nitrogen 7 mg/dL (9-16); Carbon Dioxide 27 mmol/L (22-29); Chloride 103 mmol/L (96-108); Cholesterol 181 mg/dL (<200); Estimated Glomerular Filt Rate > 60; Glucose Fasting 214 mg/dL (60-99); HDL Cholesterol 46 mg/dL (>40); Iron 100 mcg/dL (45-160); LDL Cholesterol Calculated 102 mg/dL (<100); Percent Iron Saturation 37 % (15-50); Sodium 138 mmol/L (135-145); Total Iron Binding Capacity 270 mcg/dL (228-428); Total Protein 7.6 g/dL (6.5-8.0); Triglycerides 169 mg/dL (<150); Unsaturated Iron Binding 170 ug/dL
[2024-09-07 12:20] LABS: Creatinine Urine 196.75 mg/dL; Microalbum/Creatinine Ratio Ur 7.1 ug/mg cr (<30)
[2024-09-07 12:21] LABS: Folate 12.8 ng/mL (> or = 4.0); Vitamin B12 350 pg/mL (200-900)
== END 2024-09-07 09:41 | disposition home or self-care (01) ==
LOC: HO.LAB 09:40
PROVIDERS: PCP Internal Medicine; Visit Provider Internal Medicine
DX: E11.9 Type 2 diabetes mellitus without complications (principal); E78.5 Hyperlipidemia, unspecified; E53.8 Deficiency of other specified B group vitamins; D64.9 Anemia, unspecified
CPT/HCPCS: 36415; 80053; 80061; 82043; 82570; 82607; 82746; 83540; 85025

== ENCOUNTER 2024-09-13 08:13 | Outpatient (AMB) | payer OTHER, SELFPAY ==
--- NOTE | 2024-09-13 08:22 | A.OFFPC_ITS ---
Vital Signs 09/13/24 08:23 Height 5 ft 8 in Weight 267 lb BMI 40.6 BP 118/74 Blood Pressure Location Lt brachial Position Sitting Intake Visit Reasons: Annual PE Intake Note: Patient here for a physical exam Geospatial Program Management Officer Required: Yes Geospatial Program Management Officer Language: Wood Cut Engraver Name: Jennifer Galvin MD Information Interpreted: non-clinical & clinical Accompanied by: Self / Same As Patient Allergies No Known Allergies Allergy (Verified 09/13/24 08:40) Medication List - Last Reconciled 09/13/24 by Jennifer Galvin MD aspirin 81 mg PO DAILY 90 days bisacodyl (Dulcolax (bisacodyl)) 10 mg (2 x 5 mg) PO ONCE 1 day blood pressure monitor (Blood Pressure Kit) As directed blood sugar diagnostic Use 1 freestyle test strips once a day buspirone 5 mg PO TID clonazepam 1 mg PO BID PRN cream base no.105 (bulk) (Base W301 cream) Diclofenac 5%, Baclofen 5%, Cyclobenzaprine 2%, Gabapentin 6%, Bupivacaine 2% SIG: apply pea-sized amount 3- 5 times daily to painful areas as needed diclofenac sodium 1% 2 grams topical QID 30 days docusate sodium 100 mg PO BEDTIME duloxetine 60 mg PO DAILY empagliflozin (Jardiance) 10 mg PO DAILY 90 days ezetimibe 10 mg PO DAILY 90 days folic acid 1 mg PO DAILY 90 days furosemide 20 mg PO DAILY 90 days gabapentin 800 mg PO TID 30 days Knee brace As directed lancets As directed lisinopril 20 mg PO DAILY loratadine 10 mg PO DAILY metformin 1,000 mg PO BID 90 days omeprazole 20 mg PO DAILY 90 days oxycodone 10 mg PO Q4-6H PRN 30 days polyethylene glycol 3350 (Miralax) 238 grams PO ONCE rosuvastatin 40 mg PO DAILY 90 days semaglutide (Ozempic) 0.5 mg (0.736 mL) subcut QWEEK 4 weeks sennosides (Natural Senna Laxative) 17.2 mg (2 x 8.6 mg) PO BEDTIME tirzepatide (Mounjaro) 2.5 mg (0.5 mL) subcut QWEEK 4 weeks zolpidem 10 mg PO BEDTIME PRN Tobacco use date assessed: 09/13/24 Dental Screening Dental Screen Date: 09/13/24 Did you have a dental visit in the last 12 months?: No Did you have a dental problem in the last 6 months where you did not have access to dental care?: No Was dental information given to patient?: Patient has dentist HPI HPI Comments History of Present Illness Details The patient is a 53-year-old male presenting for his physical exam. Declines Tdap vaccine today. Has not had a colonoscopy yet. His last Hemoglobin A1c was 8.4, indicating poor glycemic control. He has a history of diabetes type 2, hypertension, and hyperlipidemia. The patient has undergone a left knee replacement in 2018 and another surgery on the left leg in 2012. There is a reported history of cholecystectomy. He denies any recent episodes of chest pain, shortness of breath, cough, or fever. There is no history of smoking or alcohol consumption. Medications include metformin, duloxetine, lisinopril, furosemide, gabapentin, and others for diabetes, hypertension, hyperlipidemia, and pain management. He has been using Ozempic 0.5 mg once weekly for diabetes but will increase to 1 mg due to uncontrolled blood sugar levels. 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 - Tetanus vaccination due; suggested adm inistration as last received over 10 years ago. - Colonoscopy referral recommended; sofia ent stated previous arrangements were changed. - Cholesterol management discussed, with LDL levels not at target (above 100). - Encouraged adherence to prescribed ros uvastatin for hyperlipidemia. - Diabetes management with the current r egimen including Ozempic dose adjustment noted. [facility] Medical History (Updated 09/13/24 @ 08:53 by Jennifer Galvin MD) Osteoarthritis of neck Back pain Anxiety and depression History of heart murmur in childhood JUAN on CPAP Knee pain, left Acid reflux Ulnar neuropathy Median neuropathy Hand numbness Diabetes mellitus Essential hypertension Lumbar degenerative disc disease Cervical radiculopathy Osteoarthritis of left knee Surgical History History of total left knee replacement (TKR) History of surgery History of cholecystectomy History of left knee surgery Family History Father Diabetes Hypertension Mother Hypertension Lung cancer Sister Stomach cancer Social History Housing: Apartment Alcohol intake: never Patient Tobacco Use Status: Never used Tobacco e-Cigarette/Vaping Use: Never Used Second Hand Smoke Exposure: No service: No Current occupational status: disabled Cognitive needs: Yes Hearing needs: No Vision needs: No Questionnaire PHQ-9 Over the last 2 weeks, how often have you been bothered by any of the following problems? 1. Little interest or pleasure in doing things: several days 2. Feeling down, depressed, or hopeless: several days 3. Trouble falling or staying asleep, or sleeping too much: not at all 4. Feeling tired or having little energy: not at all 5. Poor appetite or overeating: not at all 6. Feeling bad about yourself - or that you are a failure or have let yourself or your family down: not at all 7. Trouble concentrating on things, such as reading the newspaper or watching television: not at all 8. Moving or speaking so slowly that other people could have noticed. Or the opposite - being so fidgety or restless that you have been moving around a lot more than usual: not at all 9. Thoughts that you would be better off or of hurting yourself in some way: not at all Total score: 2 Depression Screening Interpretation: Positive Depression Screening Follow-up: Existing condition, In treatment, Community Mental Health Worker F/U and Follow- up Visit Requested Depression Screening Done: Yes 83331 - PHQ-9 Billing: Yes Source: Developed by Drs. Guillaume Corea, Jordana Robertson, Froilan Aguilar and colleagues, with an educational radhika from [employer]. Thrive Questionnaire Date Thrive assessed: 09/13/24 I am a: Patient What is your living situation today?: I have a steady place to live Within the past 12 months, did the food you bought not last and you didn't have the money to get more?: Never true Within the past 12 months, did you worry whether your food would run out before you got money to buy more?: Never true Do you have trouble paying for medicines?: No Do you have trouble getting transportation to medical appointments?: No Do you have trouble paying your heating and electricity bill?: No Do you have trouble taking care of your child, family member or friend?: No Do you have trouble with day-to-day activities such as bathing, preparing meals, shopping, managing finances, etc.?: No Are you currently unemployed and looking for a job?: No Are you interested in more education?: No Please select the resources that you would like help with: None Currently or been in a relationship where the following occur: No concerns reported THRIVE Score: 0 AUDIT C Alcohol Use Questionnaire (AUDIT-C) 1. How often do you have a drink containing alcohol?: Never Total Score: 0 Score Reviewed/Action Taken: No LOBO-7 AMB Questionnaire LOBO-7 Date LOBO - 7 assessed: 09/13/24 Feeling nervous, anxious, or on edge: 1 = Several days Not being able to stop or control worryin = Not at all Worrying too much about different things: 0 = Not at all Trouble relaxin = Not at all Being so restless that it is hard to sit still: 0 = Not at all Becoming easily annoyed or irritable: 1 = Several days Feeling afraid as if something awful might happen: 0 = Not at all Total LOBO-7 score (0-4 normal; 5-9 mild; 10-14 moderate; 15-21 severe): 2 Source: Developed by Drs. Guillaume Corea, Jordana Robertson, Froilan Aguilar and colleagues, with an educational radhika from [employer]. LOBO-7 Assessment Billing LOBO-7 Assessment Tool: LOBO-7 Assessment 87641 Review of Systems Const All systems reviewed & are unremarkable except as noted in HPI and below Card Denies chest pain at rest, Denies chest pain with activity, Denies edema, Denies irregular heart rhythm, Denies claudication, Denies dyspnea, Denies dyspnea on exertion, Denies orthopnea, Denies paroxysmal nocturnal dyspnea and Denies slow heart rate Resp Denies cough, Denies dyspnea and Denies dyspnea on exertion GI Denies abdominal pain, Denies change in bowel habits, Denies excessive flatus, Denies nausea and Denies vomiting Physical exam (Primary Care) Vital Signs: Last Vital Signs BP 118/74 09/13/24 08:23 BMI result Body Mass Index 40.6 Tobacco/Smoking Status: Tobacco use Status Tobacco use date assessed 09/13/24 09/13/24 08:33 Patient Tobacco Use Status Never used Tobacco 09/13/24 08:22 e-Cigarette/Vaping Use Never Used 09/13/24 08:22 PHQ-9: PHQ-9 Score PHQ-9: Total score 0 09/13/24 08:33 Depression Screening Interpretation: Positive Depression Screening Follow-up: Existing condition, In treatment, Community Mental Health Worker F/U and Follow- up Visit Requested Thrive Assessment: Date of Thrive Assessment Date Thrive assessed 09/13/24 09/13/24 08:33 Currently or been in a relationship where the following occur: No concerns reported HENCO Head: Yes normal to inspection, Yes normocephalic and Yes atraumatic Ears: external ears normal Eyes General: appearance normal, both eyes and all related structures Eyelids: Yes eyelids normal Conjunctivae: conjunctivae normal Neck Neck: Yes normal visual inspection and Yes supple Resp Effort & Inspection: normal respiratory effort Auscultation: clear to auscultation bilaterally Cardio Jugular venous distension: no JVD Rate: regular rate Rhythm: regular rhythm Heart sounds: S1 normal heart sound present and S2 normal heart sound present GI Inspection: Yes normal to inspection Palpation (GI): Soft to palpation and nontender Auscultation: normal bowel sounds Skin General skin exam: no rashes or lesions noted Neuro General: no focal motor deficits Extrem General: Yes full ROM Psych Appearance: grossly normal Office Procedures Flu Questionnaire Does the patient have a severe egg allergy?: No Results AMB Hemoglobin A1c AMB Hemoglobin A1c 8.4 % Last Edit by DAVID Ty on 09/13/24 08:3 8 Immunizations Fluarix Triv [id number] (PF) 45 mcg (15 mcg x 3)/0.5 mL IM syringe Performing Provider: Jennifer Galvin MD [facility] [place] [facility] Documented (not given) by: DAVID Ty on 09/13/24 08:38 Reason Not Given: Patient Refused Results Reviewed Results Reviewed: Laboratory Last Values Hgb A1c (Clinic) 8.4 % (4.0-6.0) H 09/13/24 08:23 Coding Level of Care Code Est Pt Level 3 (73236) Est Pt Prev Care 40-64y(27996) Diagnoses Physical exam Z00.00 Mild recurrent major depression F33.0 Type 2 diabetes mellitus without complication, without long-term current use of insulin E11.9 Diabetes mellitus type: type 2 Diabetes mellitus long term care phlebotomist insulin use: without detention use Diabetes mellitus complication status: without complication Osteoarthritis of left knee M17.12 Additional Codes PHQ-9 - 87674 - PHQ-9 Billing: Yes ([id number]) LOBO-7 Assessment Billing - LOBO-7 Assessment Tool: LOBO-7 Assessment 79248 ([id number]) Time Spent (min) 31 Assessment & Plan Assessment & Plan (1) Physical exam: Code(s): Z00.00 - Encounter for general adult medical examination without abnormal findings Category: Medical (2) Mild recurrent major depression: Code(s): F33.0 - Major depressive disorder, recurrent, mild Category: Medical (3) Diabetes mellitus: Code(s): E11.9 - Type 2 diabetes mellitus without complications Category: Medical Qualifiers: Diabetes mellitus type: type 2 Diabetes mellitus detention insulin use: without long term care phlebotomist use Diabetes mellitus complication status: without complicati on Qualified Code(s): E11.9 - Type 2 diabetes mellitus without complications (4) Osteoarthritis of left knee: Code(s): M17.12 - Unilateral primary osteoarthritis, left knee Category: Medical Plan - Increase Ozempic to 1 mg weekly for improved glycemic control. - Initiate rosuvastatin therapy adherence for hyperlipidemia management. - Discussed the logistical arrangements for the colonoscopy to ensure completion. - Administer tetanus vaccine during this visit. - Encourage continued use of prescribed medications for hypertension and pain management. Patient was informed and verbally consented to the use of an ambient scribe for clinic note documentation during this visit. We discussed the patient's elevated A1c, indicating the need to increase Ozempic to improve glycemic control. I reinforced the importance of adhering to his cholesterol medication to bring LDL levels under control. We talked about the relevance of receiving a tetanus booster since his last was over ten years ago. I suggested following up with the referral for his colonoscopy. The patient understands the current treatment plan and agrees with the medication adjustments. Orders: Orders AMB Hemoglobin A1c Today E11.9 - Type 2 diabetes mellitus without complications Influenza [id number] Immunization Today Z23 - Encounter for immunization Lipid Panel 4 Months E78.5 - Hyperlipidemia, unspecified Microalbumin, Random (w Creat) 4 Months R80.9 - Proteinuria, unspecified Vitamin D 25-OH Total 4 Months E55.9 - Vitamin D deficiency, unspecified Comprehensive [place]. Panel Fast 4 Months E11.9 - Type 2 diabetes mellitus withou t complications Referrals Gastroenterology Referral Z12.11 - Encounter for screening for malignant neoplasm of colon Patient Instructions: - Follow up with the colonoscopy as arranged. - Continue with the increased Ozempic dosage once weekly. - Take rosuvastatin regularly to help manage cholesterol levels. - Ensure to receive the tetanus vaccination today. - Adhere to the current medication regimen for diabetes, hypertension, and other conditions. - Return for follow-up visits and lab work as previously instructed.
[2024-09-13 08:23] VITALS: BP 118/74; BMI 40.6
== END 2024-09-13 08:52 | disposition home or self-care (01) ==
PROVIDERS: PCP Internal Medicine; Visit Provider Internal Medicine
DX: Z00.00 Encounter for general adult medical examination without abnormal findings (principal); F33.0 Major depressive disorder, recurrent, mild; E11.9 Type 2 diabetes mellitus without complications; M17.12 Unilateral primary osteoarthritis, left knee

== ENCOUNTER → 2024-09-13 08:13 | Outpatient (BNVA) | payer OTHER, SELFPAY | PROVIDERS: PCP Internal Medicine; Visit Provider Internal Medicine | DX: Z00.01 Encounter for general adult medical examination with abnormal findings (principal); F33.0 Major depressive disorder, recurrent, mild; E11.9 Type 2 diabetes mellitus without complications; M17.12 Unilateral primary osteoarthritis, left knee | CPT/HCPCS: 83036; 96127; 99212; 99396 ==

== ENCOUNTER 2024-12-27 09:15 | Outpatient (REF) | payer OTHER, SELFPAY ==
--- OUTSIDE RECORDS SUMMARY | 2024-12-27 10:00 | XMS_ITS | Clinical Summary ---
Author Organization [facility] [facility] ity Address [address] [place] [address] Care Team Providers Care [employer] Name Role Phone Unavailable Primary Care Provider Unavailabl e Social History Tobacco Use Types Packs/Day Years Used Date Smoking Tobacco: Never Assessed Sex and Gender Information Value Date Recorded Sex Assigned at Not on file Legal Sex Male 9:10 PM EST Gender Identity Not on file Sexual Orientation Not on file Plan of Treatment Health Maintenance Due Date Last Done Comments DTaP,Tdap,and Td Vaccines (1 - Tdap) 1989 Hepatitis B Vaccines (1 of 3 - 19+ 3-dose series) 1989 Pneumococcal Vaccine: 50+ Ye ars (1 of 1 - PCV) 2020 Zoster Vaccines (1 of 2) 2020 Cholesterol Screening (Lipid Panel) 09/04/2023 Colorectal Cancer Screening: Colonoscopy 09/04/2023 Depression Screening 09/04/2023 HIV Screening 09/04/2023 Hepatitis C Screening 09/04/2023 Social Influencers of Health Screening 09/04/2023 COVID-19 Vaccine ( - 2023-2 5 season) 2024 Influenza Vaccine (Season Ended) 2025 HIB Vaccines Aged Out No longer eligi [...] patient's age to complete this topic Meningococcal B Vaccine Aged Out No l onger eligible based on patient's age to complete [...]
[2024-12-27 10:46] LABS: Alanine Aminotransferase 69 U/L (0-40); Alkaline Phosphatase 46 U/L (39-117); Anion Gap 12 (12-20); Aspartate Amino Transferase 51 U/L (5-37); Bilirubin Total 0.9 mg/dL (0.0-1.0); Blood Urea Nitrogen 8 mg/dL (9-16); Carbon Dioxide 26 mmol/L (22-29); Chloride 102 mmol/L (96-108); Cholesterol 183 mg/dL (<200); Estimated Glomerular Filt Rate > 60; Glucose Fasting 182 mg/dL (60-99); HDL Cholesterol 50 mg/dL (>40); LDL Cholesterol Calculated 100 mg/dL (<100); Potassium 3.6 mmol/L (3.3-5.1); Sodium 136 mmol/L (135-145); Total Protein 7.1 g/dL (6.5-8.0); Triglycerides 169 mg/dL (<150)
[2024-12-27 10:51] LABS: Vitamin D 25-OH Total 43.8 ng/mL (>30)
[2024-12-27 11:28] LABS: Creatinine Urine 347.67 mg/dL; Microalbum/Creatinine Ratio Ur 4.6 ug/mg cr (<30)
== END 2024-12-27 09:16 | disposition home or self-care (01) ==
LOC: HO.LAB 09:15
PROVIDERS: PCP Internal Medicine; Visit Provider Internal Medicine
DX: R80.9 Proteinuria, unspecified (principal); E11.9 Type 2 diabetes mellitus without complications; E78.5 Hyperlipidemia, unspecified; E55.9 Vitamin D deficiency, unspecified
CPT/HCPCS: 36415; 80053; 80061; 82043; 82306; 82570

== ENCOUNTER 2025-02-13 09:43 | Emergency (ER) | payer OTHER, SELFPAY ==
--- NOTE | ~2025-02-13 | CT_ITS ---
EXAMINATION: CT ABDOMEN PELVIS WITH IV CONTRAST HISTORY: ? diverticulitis COMPARISON: There are no prior studies for available comparison. TECHNIQUE: CT scan of the abdomen and pelvis was performed following administration of 85 mL Omnipaque 350 using standard departmental protocol. Coronal and sagittal reformatted images were generated and reviewed. Oral contrast material was not administered at the request of the referring physician. This CT exam was performed with one or more of the following dose reduction techniques: automated exposure control, adjustment of the mA and/or kV according to patient size, use of iterative reconstruction technique. DLP: 817 mGy-cm FINDINGS: LOWER CHEST: The visualized lung bases are clear. There is no pleural effusion. CARDIOVASCULATURE: The heart is normal in size. There is no pericardial effusion. LIVER: The liver is normal in size and contour, but demonstrates diffusely decreased attenuation, consistent with steatosis. No liver mass is identified. The hepatic and portal veins are patent. GALLBLADDER / BILE DUCTS: There is gallbladder wall calcification at the neck. No calcified stones are identified. There is no intra or extrahepatic biliary ductal dilatation. SPLEEN: The spleen is normal in size. No focal splenic lesion is identified. PANCREAS: The pancreas is unremarkable in appearance. ADRENAL GLANDS: Within normal limits. KIDNEYS/RETROPERITONEUM: No renal calculi are identified. There is no hydronephrosis. No renal masses are identified. LYMPH NODES: No abdominal or pelvic lymphadenopathy. VASCULATURE: The abdominal aorta is normal in caliber. MESENTERY/PERITONEUM: No free fluid. No masses. There is no free intraperitoneal gas. STOMACH: The stomach is collapsed, limiting evaluation. SMALL BOWEL: The small bowel is normal in caliber. COLON: The colon is unremarkable. APPENDIX: Normal. URINARY BLADDER/PELVIC ORGANS: The urinary bladder is collapsed, limiting evaluation. The prostate is normal in size. BONES / SOFT TISSUES: No suspicious bony or soft tissue abnormalities. CT/CT abdomen pelvis w IV con IMPRESSION: Hepatic steatosis. No CT evidence of diverticulitis. Electronically signed by: Guillaume Sierra MD 02/13/2025 12:51 PM EDT
[2025-02-13 09:56] VITALS: BP 149/77; PULSE 75; RESP 18; TEMP 37; O2SAT 98; BMI 32.9
--- NOTE | 2025-02-13 10:00 | ECG_ITS ---
Test Reason : dizzy Blood Pressure : */* mmHG Vent. Rate : 65 BPM Atrial Rate : 65 BPM P-R Int : 164 ms QRS Dur : 82 ms QT Int : 394 ms P-R-T Axes : 55 10 36 degrees QTcB Int : 409 ms Sinus rhythm with marked sinus arrhythmia Nonspecific T wave abnormality Abnormal ECG When compared with ECG of 12-Jun-2023 11:36, Nonspecific T wave abnormality now evident in Lateral leads Referred By: Generic ED Physician Electronically Signed By: Inderjit Santamaria
[2025-02-13 10:16] LABS: MANUAL DIFF FLAG NO
[2025-02-13 10:18] LABS: Hematocrit 41.3 % (42.0-52.0); Hemoglobin 14.3 g/dl (14.0-18.0); Imm Gran Abs Auto 0.05 X10*3/uL (0.00-0.03); Imm Gran Pct Auto 0.7 % (0.0-0.4); Lymphocytes Absolute Auto 2.1 X10*3/uL (1.2-4.9); Mean Corpuscular HGB Conc 34.6 g/dl (31.0-36.0); Mean Corpuscular Hemoglobin 30.6 pg (27.0-33.0); Mean Corpuscular Volume 88.4 fL (80.0-98.0); NRBC Abs Auto 0.000 X10*3/uL (0.0-0.012); NRBC Pct Auto 0.0 /100WBC (0.0-0.2); Platelet Count 193 X10*3/uL (160-400); Red Blood Count 4.67 X10*6/uL (4.60-5.80); White Blood Count 7.7 X10*3/uL (4.8-10.8)
[2025-02-13 10:35] LABS: Alanine Aminotransferase 41 U/L (0-40); Albumin Level 3.9 g/dL (3.5-5.0); Alkaline Phosphatase 45 U/L (39-117); Anion Gap 13 (12-20); Aspartate Amino Transferase 30 U/L (5-37); Blood Urea Nitrogen 11 mg/dL (9-16); Calcium 9.1 mg/dL (8.4-10.2); Carbon Dioxide 23 mmol/L (22-29); Chloride 105 mmol/L (96-108); Creatinine Clr Calc Pharmacy 150.5; Estimated Glomerular Filt Rate > 60; Potassium 3.4 mmol/L (3.3-5.1); Sodium 138 mmol/L (135-145); Total Protein 6.8 g/dL (6.5-8.0)
[2025-02-13 11:36] LABS: Lipase 49 U/L (8-78)
[2025-02-13 11:46] VITALS: BP 136/79; PULSE 56; RESP 16; TEMP 36.7; O2SAT 96
--- NOTE | 2025-02-13 11:49 | ED_ITS ---
HPI - Abdominal Pain General Chief Complaint: Abdominal Pain Stated Complaint: Abd pain, leg pain Time Seen by Provider: 02/13/25 11:25 Source: patient Mode of arrival: ambulatory Limitations: no limitations History of Present Illness HPI narrative: This is a 54 years old the patient with a history of anxiety disorder osteoarthritis presented to emergency department with multiple somatic complaints which include abdominal pain dizziness for about a month also he stated that he feel lump in the perianal area, and denies any fever or chills any systemic symptoms that would such as nausea and vomiting or diarrhea MD elicited complaint: abdominal pain Pertinent past history: other (anxiety) Onset (ago): day(s) Pain Consistency: constant Location: diffuse Severity: mild Related Data Home Medications ?Medication ?Instructions ?Recorded ?Confirmed buspirone 5 mg tablet 5 mg PO TID 07/09/20 5 clonazepam 2 mg tablet 1 mg PO BID PRN Anxiety 06/1209/13/24 duloxetine 60 mg capsule,delayed 60 mg PO DAILY 09/13/24 release zolpidem 10 mg tablet 10 mg PO BEDTIME PRN Sleep 1 09/08/19 09/13/24 Previous Rx's ?Medication ?Instructions ?Recorded bisacodyl 5 mg tablet,delayed 10 mg (2 x 5 mg) PO ONCE 1 day #2 03/03/22 release (Dulcolax (bisacodyl)) tabs polyethylene glycol 3350 17 238 g PO ONCE #238 grams 0 03/03/22 gram/dose oral powder (Miralax) sennosides 8.6 mg tablet (Natural 17.2 mg (2 x 8.6 mg) PO BEDTIME 03/03/22 Senna Laxative) constipation #90 tabs blood pressure monitor (Blood #1 ea 08/26/22 Pressure Kit) cream base no.105 (bulk) (Base See Rx Instructions mis cellaneous 04/07/23 W301 cream) .COMPLEX pain #180 grams Knee brace #2 ea 02/08/24 aspirin 81 mg tablet,delayed 81 mg PO DAILY 90 days #9 0 tabs 05/01/24 release furosemide 20 mg tablet 20 mg PO DAILY 90 days #90 t abs 08/26/24 cane #1 ea 09/13/24 blood sugar diagnostic #100 ea 09/20/24 lancets 28 gauge #100 ea 09/21/24 metformin 1,000 mg tablet 1,000 mg PO BID 90 days #180 tabs 10/07/24 rosuvastatin 40 mg tablet 40 mg PO DAILY 90 days #90 t abs 10/11/24 docusate sodium 100 mg capsule 100 mg PO BEDTIME #90 c aps 11/14/24 empagliflozin 10 mg tablet 10 mg PO DAILY 90 days #90 tabs 11/14/24 (Jardiance) gabapentin 800 mg tablet 800 mg PO TID 30 days #90 ta bs 11/14/24 omeprazole 20 mg capsule,delayed 20 mg PO DAILY 90 day s #90 caps 11/14/24 release fluticasone propionate 50 1 spray intranasal DAILY 30 days 11/18/24 mcg/actuation nasal #16 grams spray,suspension (Flonase Allergy Relief) loratadine 10 mg tablet 10 mg PO DAILY #90 tabs 11/08 10/04 lisinopril 20 mg tablet 20 mg PO DAILY #30 tabs 01/01 diclofenac sodium 1 % topical gel 2 g topical QID 30 d ays #100 grams 01/17/25 ezetimibe 10 mg tablet 10 mg PO DAILY 90 days #90 t abs 01/17/25 oxycodone 10 mg tablet 10 mg PO Q4-6H PRN pain 30 d ays 01/18/25 #180 tabs semaglutide 1 mg/dose (4 mg/3 mL) 1 mg (0.75 mL) subcu t QWEEK 4 01/18/25 subcutaneous pen injector (Ozempic) weeks #3 mL folic acid 1 mg tablet 1 mg PO DAILY 90 days #90 ta bs 01/25/25 Allergies Allergy/AdvReac Type Severity Reaction Status Date / Time No Known Allergies Allergy Verified 02/13/25 09:59 Review of Systems Constitutional: Reports no additional constitutional complaints Cardiovascular: Reports no additional cardiovascular complaints Gastrointestinal: Reports as per [facility] Past Medical History Attestation statement: The following information was validated with the patient. Medical History Osteoarthritis of neck Back pain Anxiety and depression History of heart murmur in childhood JUAN on CPAP Knee pain, left Acid reflux Ulnar neuropathy Median neuropathy Hand numbness Diabetes mellitus Essential hypertension Lumbar degenerative disc disease Cervical radiculopathy Osteoarthritis of left knee Surgical History History of total left knee replacement (TKR) History of surgery History of cholecystectomy History of left knee surgery Family History Family History Father Diabetes Hypertension Mother Hypertension Lung cancer Sister Stomach cancer Social History Social History Housing: Apartment Alcohol intake: never Patient Tobacco Use Status: Never used Tobacco e-Cigarette/Vaping Use: Never Used Second Hand Smoke Exposure: No service: No Current occupational status: disabled Cognitive needs: Yes Hearing needs: No Vision needs: No Physical Exam ED Vital Signs: Vital Signs - 24 hr 02/13/25 09:56 02/13/25 11:46 02/13/25 13:47 Temperature 98.6 F 98.1 F 98.1 F Pulse Rate 75 56 56 Respiratory Rate 18 16 16 Blood Pressure 149/77 H 136/79 136/79 Pulse Oximetry 98 96 96 Oxygen Delivery Method Room Air Room Air Room Air BMI result Body Mass Index 32.9 On exam he looks well no distress comfortable in the stretcher stable vital signs Const General: cooperative Nutritional Appearance: well nourished Orientation/consciousness: patient oriented x3 HENND General nose exam: Normal external nose present Mouth: Normal oral and palatal mucosa present Eyes EOM: EOMs intact bilaterally Neck Neck: Yes normal visual inspection Chest Chest palpation & inspection: normal inspection of the chest Resp Effort & Inspection: normal respiratory effort Auscultation: clear to auscultation bilaterally Cardio Jugular venous distension: no JVD Rate: regular rate Rhythm: regular rhythm GI Inspection: Yes normal to inspection Palpation (GI): Soft to palpation Auscultation: normal bowel sounds Rectal Exam - Male: Yes visual inspection normal, Yes normal sphincter tone, No Abnormal stool present, Yes heme negative stool and No External hemorrhoid(s) present Skin General skin exam: no rashes or lesions noted, elasticity normal and turgor normal Neuro General: patient oriented x3 Course Reevaluation(s) Reevaluation #1: CT essentially negative, labs normal stools brown heme negative at this point I think he can be safely discharged home follow-up with GI Time: 13:34 Medical Decision Making Medical Decision Making [facility] Narrative: The pain is here with multiple complaints including abdominal pain we will obtain labs imaging and reassessed Differential Diagnosis Differential Diagnoses: The differential diagnosis associated with the presentation includes Colitis/diverticulitis/kidney stone Admission/Observation Consideration of admission/observation: Escalation of care including admission/observation considered Lab Data [facility] Lab Attestation statement: I reviewed the patient's lab results. 02/13/25 10:12 02/13/25 10:12 Labs: Lab Results 02/13/25 02/13/25 Range/Units 10:12 12:02 WBC 7.7 (4.8-10.8) X10*3/uL RBC 4.67 (4.60-5.80) X10*6/uL Hgb 14.3 (14.0-18.0) g/dl Hct 41.3 L (42.0-52.0) % MCV 88.4 (80.0-98.0) fL MCH 30.6 (27.0-33.0) pg MCHC 34.6 (31.0-36.0) g/dl RDW 13.2 (11.0-16.0) % Plt Count 193 (160-400) X10*3/uL MPV 9.7 (9.4-12.4) fL Immature Gran % (Auto) 0.7 H (0.0-0.4) % Neut % (Auto) 61.3 (45-73) % Lymph % (Auto) 27.6 (20-40) % Lewis % (Auto) 8.6 (2-11) % Eos % (Auto) 1.3 (0-4) % Baso % (Auto) 0.5 (0-2) % Lymph # (Auto) 2.1 (1.2-4.9) X10*3/uL Lewis # (Auto) 0.7 (0.1-1.2) X10*3/uL Eos # (Auto) 0.1 (0.0-0.4) X10*3/uL Baso # (Auto) 0.0 (0.0-0.2) X10*3/uL Abs Immat Gran (auto) 0.05 H (0.00-0.03) X10*3/uL Absolute Neuts (auto) 4.7 (2.0-8.3) x10*3/uL Absolute Nucleated RBC 0.000 (0.0-0.012) X10*3/uL Nucleated RBC % (auto) 0.0 (0.0-0.2) /100WBC Sodium 138 (135-145) mmol/L Potassium 3.4 (3.3-5.1) mmol/L Chloride 105 (96-108) mmol/L Carbon Dioxide 23 (22-29) mmol/L Anion Gap 13 (12-20) BUN 11 (9-16) mg/dL Creatinine 0.76 (0.5-1.4) mg/dL Estim Creat Clear Calc 150.5 Estimated GFR > 60 Random Glucose 254 H (60-115) mg/dL Calcium 9.1 (8.4-10.2) mg/dL Total Bilirubin 0.7 (0.0-1.0) mg/dL AST 30 (5-37) U/L ALT 41 H (0-40) U/L Alkaline Phosphatase 45 (39-117) U/L Total Protein 6.8 (6.5-8.0) g/dL Albumin 3.9 (3.5-5.0) g/dL Lipase 49 (8-78) U/L Stool Occult Blood NEGATIVE (NEGATIVE) Independent Interpretation I performed an independent interpretation of an: CT Scan Interpretation: Not acute disease Radiology Impression Discussion of test interpretation with radiology: I have reviewed the radiologist's reading. Radiologist Impression: STOMACH: The stomach is collapsed, limiting evaluation. SMALL BOWEL: The small bowel is normal in caliber. COLON: The colon is unremarkable. APPENDIX: Normal. URINARY BLADDER/PELVIC ORGANS: The urinary bladder is collapsed, limiting evaluation. The prostate is normal in size. BONES / SOFT TISSUES: No suspicious bony or soft tissue abnormalities. CT/CT abdomen pelvis w IV con IMPRESSION: Hepatic steatosis. No CT evidence of diverticulitis. Electronically signed by: Guillaume Sierra MD 02/13/2025 12:51 PM EDT Medications Administered Discontinued Medications Generic Name Dose Route Start Last Admin Trade Name Freq PRN Reason Stop Dose Admin Iohexol 100 ml 02/13/25 12:42 02/13/25 12:43 Iohexol 350 Mg/Ml 100 Ml Infus..Btl IV 02/13/25 12:43 100 ml ONCE ONE Administration Discharge Plan Discharge Clinical Impression: Dizziness Abdominal pain Qualifiers: Abdominal location: generalized Qualified Code(s): R10.84 - Generalized abdominal pain Patient Disposition: Home, Self-Care Instructions: Abdominal Pain (ED) Additional Instructions: Please follow-up with your primary care physician also follow-up with ios software engineer we will give you the name of the ios software engineer Prescriptions: No Action (DME) Knee brace Misc See Rx Instructions .Route Qty: 2 1RF Rx Instructions: As directed aspirin 81 mg tablet,delayed release (DR/EC) 81 mg PO DAILY 90 Days Qty: 90 3RF furosemide 20 mg tablet 20 mg PO DAILY 90 Days Qty: 90 1RF (DME) blood sugar diagnostic Strip See Rx Instructions Not Applicable BID Qty: 100 3RF Rx Instructions: Use 1 freestyle test strips once a day (DME) lancets 28 gauge misc See Rx Instructions topical TID Qty: 100 11RF Rx Instructions: As directed- daily metformin 1,000 mg tablet 1,000 mg PO BID 90 Days Qty: 180 1RF rosuvastatin 40 mg tablet 40 mg PO DAILY 90 Days Qty: 90 1RF omeprazole 20 mg capsule,delayed release(DR/EC) 20 mg PO DAILY 90 Days Qty: 90 3RF docusate sodium 100 mg capsule 100 mg PO BEDTIME Qty: 90 3RF Jardiance 10 mg tablet 10 mg PO DAILY 90 Days Qty: 90 1RF gabapentin 800 mg tablet 800 mg PO TID 30 Days Qty: 90 4RF fluticasone propionate [Flonase Allergy Relief] 50 mcg/actuation spray,suspension 1 spray intranasal DAILY 30 Days Qty: 16 2RF Rx Instructions: administer into each nostril loratadine 10 mg tablet 10 mg PO DAILY Qty: 90 1RF lisinopril 20 mg tablet 20 mg PO DAILY Qty: 30 2RF diclofenac sodium 1 % gel 2 g topical QID 30 Days Qty: 100 0RF Rx Instructions: apply to single elbow, wrist or hand; for hand includes palm/fingers/back of hand ezetimibe 10 mg tablet 10 mg PO DAILY 90 Days Qty: 90 1RF oxycodone 10 mg tablet 10 mg PO Q4-6H PRN (Reason: pain) 30 Days Qty: 180 0RF Ozempic 1 mg/dose (4 mg/3 mL) pen injector 1 mg subcut QWEEK 28 Days Qty: 3 0RF folic acid 1 mg tablet 1 mg PO DAILY 90 Days Qty: 90 2RF zolpidem 10 mg tablet 10 mg PO BEDTIME PRN (Reason: Sleep) clonazepam 2 mg tablet 1 mg PO BID PRN (Reason: Anxiety) buspirone 5 mg tablet 5 mg PO TID duloxetine 60 mg capsule,delayed release(DR/EC) 60 mg PO DAILY ([facility]) blood pressure monitor [Blood Pressure Kit] Kit See Rx Instructions .Route Qty: 1 0RF Rx Instructions: As directed sennosides [Natural Senna Laxative] 8.6 mg tablet 17.2 mg PO BEDTIME Qty: 90 3RF bisacodyl [Dulcolax (bisacodyl)] 5 mg tablet,delayed release (DR/EC) 10 mg PO ONCE 1 Days Qty: 2 0RF Rx Instructions: take 2 tabs at noon the day before your colonoscopy polyethylene glycol 3350 [Miralax] 17 gram/dose powder 238 g PO ONCE Qty: 238 0RF Rx Instructions: As directed by gastroenterology department at [facility] ([facility]) cane Device See Rx Instructions .Route Qty: 1 0RF Rx Instructions: As directed Base W301 Cream See Rx Instructions miscellaneous .COMPLEX Qty: 180 0RF Rx Instructions: Diclofenac 5%, Baclofen 5%, Cyclobenzaprine 2%, Gabapentin 6%, Bupivacaine 2% SIG: apply pea-sized amount 3-5 times daily to painful areas as needed Referrals: Dawna Mensah MD [Physician, Gastroenterology] - 02/17/25 Interventions: ED Discharge Assessment Last Done: 02/13/25 13:47 Discharge Date/Time: 02/13/25 13:48 Print Language: Luxembourgish
[2025-02-13 12:10] LABS: OBS Int Ctl Valid YES; OBS1 NEGATIVE (NEGATIVE)
--- OUTSIDE RECORDS SUMMARY | 2025-02-13 12:16 | XMS_ITS | Clinical Summary ---
Author Organization [facility] ity Address [address] [place] [address] Care Team Providers Care Production Lead Name Role Phone Unavailable Primary Care Provider [...]
[2025-02-13] MEDS: iohexoL 350 MG/ML 100 ML INFUS..BTL IV (12:43)
[2025-02-13 13:47] VITALS: BP 136/79; PULSE 56; RESP 16; TEMP 36.7; O2SAT 96
== END 2025-02-13 13:48 | disposition home or self-care (01) ==
PROVIDERS: Nurse Practitioner Family; Emergency Provider Emergency Medicine; PCP Internal Medicine
DX: R10.84 Generalized abdominal pain (principal); R10.2 Pelvic and perineal pain; R42 Dizziness and giddiness; F41.1 Generalized anxiety disorder; I49.8 Other specified cardiac arrhythmias; R94.31 Abnormal electrocardiogram [ECG] [EKG]; Z79.899 Other long term (current) drug therapy
CPT/HCPCS: 36415; 74177; 80053; 82272; 83690; 85025; 93005; 99284; 99285; Q9967

== ENCOUNTER → 2025-02-13 10:00 | Outpatient (BNV) | payer OTHER, SELFPAY | PROVIDERS: Emergency Provider Emergency Medicine; PCP Internal Medicine; Visit Provider Internal Medicine Cardiovascular Disease | DX: R94.31 Abnormal electrocardiogram [ECG] [EKG] (principal); R42 Dizziness and giddiness | CPT/HCPCS: 93010 ==

== ENCOUNTER → 2025-02-13 11:34 | Outpatient (BNV) | payer OTHER, SELFPAY | PROVIDERS: Emergency Provider Emergency Medicine; PCP Internal Medicine; Visit Provider Radiology Diagnostic Radiology | DX: K76.0 Fatty (change of) liver, not elsewhere classified (principal) | CPT/HCPCS: 74177 ==

== ENCOUNTER 2025-02-20 08:32 | Outpatient (AMB) | payer OTHER, SELFPAY ==
--- OUTSIDE RECORDS SUMMARY | 2025-02-20 08:37 | XMS_ITS | Clinical Summary ---
Author Organization [facility] [employer] [facility] ity Address [address] [place] [address] Care Team Providers Care Computer Repair Engineer Name Role Phone Unavailable Primary Care Provider [...] Influencers of Health Screening 09/04/2023 COVID-19 Vaccine (1 - 2023-2 5 season) 2024 Influenza Vaccine (#1) 2025 HIB Vaccines Aged Out No longer [...]
--- NOTE | 2025-02-20 08:43 | A.OFFVIS_ITS ---
Vital Signs 02/20/25 08:45 Height 6 ft 2 in Weight 260 lb BMI 33.4 BP 128/77 Blood Pressure Location Lt brachial Position Sitting Pulse 64 Pulse Oximetry (%) 95 Oxygen Delivery Method Room Air Intake Visit Reasons: ED FUV. Requested by PCPs office. Intake Note: Patient ED follow up for abdominal pain and rectal mass. Patient cc: abdominal pain on and off, rectal mass/hemorrhoids ?? with diarrhea and dizziness,also acid reflex. Denies any other GI issues. Veterinary Receptionist Required: Yes Veterinary Receptionist Name: Consuelo [id number] Accompanied by: Self / Same As Patient Allergies No Known Allergies Allergy (Verified 02/20/25 08:41) HPI HPI ED FUV. Requested by PCPs office.: Details: LAST VISIT 03/03/2022 GERD (gastroesophageal reflux disease) Patient reports that he has been doing little better now that he is taking omeprazole. However patient still occasionally have acid reflux. Discussed with patient avoiding dietary triggers and late night snacking. Staying upright for minimum 3 hours after meals. H pylori negative. I will send him for upper endoscopy. IBS (irritable bowel syndrome) Patient reports that his symptoms has improved, however occasionally he continues to be constipated. Patient does have occasional postprandial bloating. I will increase his Senokot to 2 tablets every night. Patient is agreeable to this. Discussed with him on dietary triggers. FODMAP diet discussed with him. Patient states that his symptoms are happening depending on what kind of food heeats. Screen for colon cancer Patient denies any cardiac or respiratory symptoms.? Denies any issues with anesthesia in the past.? History of sleep apnea using CPAP every night. ? No history infectious diseases in the past or present.? Not on any anticoagulation therapy.? Family history of colon cancer, patient's father and his sister.? Patient denies melena, hematochezia, unintentional weight loss or ribbon like stools.? Discussed at length the pre-procedure,? prep, diet & medications as well as what to expect prior, during and after the procedure.?? Stressed the importance of good bowel prep. ?Recommended the use of Vaseline or Calmoseptine OTC & baby wipes with bowel movements to promote comfort.? ?Patient verbalizes understanding and agrees to plan of care.? He was given the opportunity to ask questions and all questions answered.? We will see him after the procedure.? Plan Medications New bisacodyl (Dulcolax (bisacodyl)) take 2 tabs at noon the day before your colonoscopy 10 mg (2 x 5 mg) PO ONCE 1 day 2 tabs 0RF Z12.11 polyethylene glycol 3350 (Miralax) As directed by gastroenterology department at [facility] 238 grams PO ONCE 238 grams 0RF Z12.11 Changed From sennosides (Natural Senna Laxative) 8.6 mg PO BEDTIME 90 tabs 3RF constipation K59.00 To sennosides (Natural Senna Laxative) 17.2 mg (2 x 8.6 mg) PO BEDTIME 90 tabs 3RF constipation K59.00 ED VISIT 02/13/2025 History of Present Illness HPI narrative: This is a 54 years old the patient with a history of anxiety disorder osteoarthritis presented to emergency department with multiple somatic complaints which include abdominal pain dizziness for about a month also he stated that he feel lump in the perianal area, and denies any fever or chills any systemic symptoms that would such as nausea and vomiting or diarrhea MD elicited complaint: abdominal pain Pertinent past history: other (anxiety) TODAY'S VISIT Patient is here today for requested visit. Patient was seen in the ED 1 week ago her HPI note written above by ED provider. Patient went for abdominal pain diffuse. On and off constipation and diarrhea. Lump felt about a month ago in the rectal area. Patient denies any nausea or vomiting. Reports to have a good appetite. Pain is unrelated to meals. Feels like cramping and bloating. Patient denies melena, hematochezia, unintentional weight loss or ribbon like stools. Denies any dyspepsia, dysphagia or odynophagia. Patient is taking omeprazole daily and reports that he is moving his bowels well. Patient has been on Ozempic for quite some time. Symptoms started few months ago. Worsening symptoms week ago. When seen in the ED normal lab work. No leukoc ytosis, CT scan without any acute finding. Hepatic steatosis found. Patient was supposed to go for colonoscopy in 2021, however he canceled procedure twice as he was scared of anesthesia. Patient reports trouble waking up after anesthesia for his orthopedic surgeries. Family history of CRC [facility] Medical History (Updated 02/20/25 @ 20:18 by Daphne Delatorre, [facility]) Family history of colon cancer Perianal cyst Osteoarthritis of neck Back pain Anxiety and depression History of heart murmur in childhood JUAN on CPAP Knee pain, left Acid reflux Ulnar neuropathy Median neuropathy Hand numbness Diabetes mellitus Essential hypertension Lumbar degenerative disc disease Cervical radiculopathy Osteoarthritis of left knee Surgical History History of total left knee replacement (TKR) History of surgery History of cholecystectomy History of left knee surgery Family History Father Diabetes Hypertension Mother Hypertension Lung cancer Sister Stomach cancer Social History Housing: Apartment Alcohol intake: never Patient Tobacco Use Status: Never used Tobacco e-Cigarette/Vaping Use: Never Used Second Hand Smoke Exposure: No service: No Current occupational status: disabled Cognitive needs: Yes Hearing needs: No Vision needs: No Review of Systems Const Denies weight gain and Denies weight loss ENT Reports no additional complaints, Denies dysphagia and Denies odynophagia Card Reports no additional complaints Resp Reports no additional complaints GI Reports abdominal pain, Denies belching, Denies melena, Reports bloating, Denies change in bowel habits, Denies dysphagia, Denies excessive flatus, Denies dyspepsia, Reports heartburn, Denies diarrhea, Reports loose stools, Denies nausea, Denies odynophagia, Denies vomiting and Reports other (Rectal mass) Reports no additional complaints Musc Reports no additional complaints Neuro Reports no additional complaints Psych Reports no additional complaints Endo Reports no additional complaints Physical Exam Vital Signs: Last Vital Signs Pulse 64 02/20/25 08:45 BP 128/77 02/20/25 08:45 Pulse Ox 95 02/20/25 08:45 Oxygen Delivery Method Room Air 02/20/25 08:45 BMI result Body Mass Index 33.4 Const General: healthy appearing, no acute distress and well developed Nutritional Appearance: well nourished and obese Orientation/consciousness: patient oriented x3 Resp Effort & Inspection: normal respiratory effort, able to speak in complete sentences, no tracheal deviation and symmetric chest movement Auscultation: clear to auscultation bilaterally Cardio Rate: regular rate GI Inspection: Yes normal to inspection, No distended and Yes obesity Palpation (GI): Soft to palpation, not firm, nontender and No hepatosplenomegaly present Auscultation: normal bowel sounds Rectal Exam - Male: Yes visual inspection normal, Yes normal sphincter tone and Yes mass (perianal cyst) General: Yes no CVA tenderness Back/Spine/Pelvis Back: no CVA tenderness Skin General skin exam: elasticity normal, turgor normal and dry skin Neuro General: patient oriented x3 Psych Appearance: grossly normal Mental Status: mental status grossly normal Assessment & Plan Assessment & Plan (1) Perianal cyst: Code(s): K62.89 - Other specified diseases of anus and rectum Category: Medical (2) Screen for colon cancer: Code(s): Z12.11 - Encounter for screening for malignant neoplasm of colon Category: Medical (3) Abdominal pain: Code(s): R10.9 - Unspecified abdominal pain Qualifiers: Abdominal location: generalized Qualified Code(s): R10.84 - Generalized abdominal pain (4) Family history of colon cancer: Code(s): Z80.0 - Family history of malignant neoplasm of digestive organs Category: Medical (5) Postprandial abdominal bloating: Code(s): R14.0 - Abdominal distension (gaseous) Plan Patient reports occasional diarrhea and constipation. Otherwise states that he moves his bowels normal. Patient will be referred to general surgery small perianal cyst found. Patient reports that it is not painful, however see states that he feels it when he is sitting down. Will send him to check vitamin-D, thyroid, vitamin B12 and folate. Message sent to Surgical schedules to book upper endoscopy and colonoscopy. Patient does have occasional epigastric pain and acid reflux. Has to take omeprazole and has been on omeprazole for quite some time. Patient will be sent for colonoscopy, stressed the importance of going for colonoscopy is family history of CRC.. Return in 5 weeks to re- evaluate and l discuss prep and go over both procedures. He is agreeable to this plan and verbalizes understanding of instructions. He was given the opportunity to ask questions and all questions answered. Thank you for allowing me to participate in his care Orders: Orders Vitamin D 25-OH (D2 and D3) Today E55.9 - Vitamin D deficiency, unspecified TSH reflex Free T4 Today K59.00 - Constipation, unspecified Vitamin B12 and Folate Today R19.7 - Diarrhea, unspecified Referrals General Surgery Referral K62.89 - Other specified diseases of anus and rectum Medications: New bisacodyl (Dulcolax (bisacodyl)) take 4 tabs at noon the day before your colonoscopy 20 mg (4 x 5 mg) PO ONCE 4 tabs 0RF constipation 1 day Z12.11 - Encounter for screening for malignant neoplasm of colon Refilled polyethylene glycol 3350 (Miralax) As directed by gastroenterology department at [facility] 238 grams PO ONCE 238 grams 0RF Z12.11 - Encounter for screening for malignant neoplasm of colon Discontinued bisacodyl (Dulcolax (bisacodyl)) take 2 tabs at noon the day before your colonoscopy Discontinued Reason: Patient no longer taking 10 mg (2 x 5 mg) PO ONCE 1 day 2 tabs 0RF Z12.11 - Encounter for screening for malignant neoplasm of colon Coding Level of Care Code Est Pt Level 4 (05171) Diagnoses Perianal cyst K62.89 Screen for colon cancer Z12.11 Generalized abdominal pain R10.84 Abdominal location: generalized Family history of colon cancer Z80.0 Postprandial abdominal bloating R14.0 Time Spent (min) 40 Comment 25 minutes spent with patient and additional 15 minutes spent reviewing his records
[2025-02-20 08:45] VITALS: BP 128/77; PULSE 64; O2SAT 95; BMI 33.4
== END 2025-02-20 09:19 | disposition home or self-care (01) ==
LOC: HO.HGI 08:32
PROVIDERS: PCP Internal Medicine; Visit Provider Nurse Practitioner Family
DX: K62.89 Other specified diseases of anus and rectum (principal); R10.84 Generalized abdominal pain; R14.0 Abdominal distension (gaseous); Z80.0 Family history of malignant neoplasm of digestive organs
CPT/HCPCS: 99214

== ENCOUNTER → 2025-02-20 08:32 | Outpatient (BNVA) | payer OTHER, SELFPAY | PROVIDERS: PCP Internal Medicine; Visit Provider Nurse Practitioner Family | DX: Z12.11 Encounter for screening for malignant neoplasm of colon (principal); R10.84 Generalized abdominal pain; Z80.0 Family history of malignant neoplasm of digestive organs; K62.89 Other specified diseases of anus and rectum; R14.0 Abdominal distension (gaseous) | CPT/HCPCS: 99212 ==

== ENCOUNTER 2025-03-30 09:04 | Outpatient (REF) | payer OTHER, SELFPAY ==
--- OUTSIDE RECORDS SUMMARY | 2025-03-30 10:06 | XMS_ITS | Clinical Summary ---
Author Organization [facility] ity Address [address] [place] [address] Care Team Providers Care Layout Artist Name Role Phone Unavailable Primary Care Provider [...] Panel) 09/04/2023 Colorectal Cancer Screening: Colonoscopy 09/04/2023 HIV Screening 09/04/2023 Hepatitis C Screening 09/04/2023 Social Influencers of Health Screening 09/04/2023 COVID-19 Vaccine (1 - 2023-2 5 season) 2024 Depression Screening 08/10/2024 Influenza Vaccine (#1) 2025 HIB Vaccines Aged [...]
[2025-03-30 11:12] LABS: Folate 13.7 ng/mL (> or = 4.0); Vitamin B12 513 pg/mL (200-900)
[2025-03-30 11:27] LABS: Free T4 (Free Thyroxine) 1.16 ng/dL (0.71-1.85)
[2025-04-03 15:38] LABS: Vitamin D 25-OH, D2 <4 ng/mL; Vitamin D 25-OH, D3 39 ng/mL; Vitamin D 25-OH, Total 39 ng/mL (30-100)
== END 2025-03-30 09:05 | disposition home or self-care (01) ==
LOC: HO.LAB 09:04
PROVIDERS: PCP Internal Medicine; Visit Provider Nurse Practitioner Family
DX: E55.9 Vitamin D deficiency, unspecified (principal); K59.00 Constipation, unspecified; R19.7 Diarrhea, unspecified
CPT/HCPCS: 36415; 82306; 82607; 82746; 84439; 84443

== ENCOUNTER 2025-04-03 08:14 | Outpatient (AMB) | payer OTHER, SELFPAY ==
--- NOTE | 2025-04-03 08:16 | A.OFFVIS_ITS ---
Vital Signs 04/03/25 08:24 Height 6 ft 2 in Weight 250 lb BMI 32.1 BP 134/84 Blood Pressure Location Rt brachial Position Sitting Pulse 68 Pulse Source Pulse Oximeter Pulse Oximetry (%) 97 Oxygen Delivery Method Room Air Intake Visit Reasons: 5 week f/u Intake Note: Est pt for mgmt of chronic abd pain. Reminded of labs 03/29 via alterations workroom clerk [id number] [id number]. CC: Pt denies any significant changes since last visit. Pt takes GI meds PRN. Has not taken PPI x1 week. [facility], call with virtual alterations workroom clerk Bryon [id number] was disconnected automatically per connection difficulty. Talcer Required: Yes Talcer Services: Talcer Present Talcer Name: Cade [id number] + [facility] Information Interpreted: clinical only Accompanied by: Self / Same As Patient Allergies No Known Allergies Allergy (Verified 04/03/25 08:16) HPI HPI 5 week f/u: Details: LAST VISIT: Perianal cyst Screen for colon cancer Abdominal pain Family history of colon cancer Postprandial abdominal bloating Plan Patient reports occasional diarrhea and constipation. Otherwise states that he moves his bowels normal. Patient will be referred to general surgery small perianal cyst found. Patient reports that it is not painful, however see states that he feels it when he is sitting down. Will send him to check vitamin-D, thyroid, vitamin B12 and folate. Message sent to Surgical schedules to book upper endoscopy and colonoscopy. Patient does have occasional epigastric pain and acid reflux. Has to take omeprazole and has been on omeprazole for quite some time. Patient will be sent for colonoscopy, stressed the importance of going for colonoscopy is family history of CRC.. Return in 5 weeks to re-evaluate and l discuss prep and go over both procedures. He is agreeable to this plan and verbalizes understanding of instructions. He was given the opportunity to ask questions and all questions answered. ? Thank you for allowing me to participate in his care Orders Vitamin D 25-OH (D2 and D3) Today E55.9 TSH reflex Free T4 Today K59.00 Vitamin B12 and Folate Today R19.7 Referrals General Surgery Referral K62.89 New bisacodyl (Dulcolax (bisacodyl)) take 4 tabs at noon the day before your colonoscopy 20 mg (4 x 5 mg) PO ONCE 4 tabs 0RF constipation 1 day Z12.11 Refilled polyethylene glycol 3350 (Miralax) As directed by gastroenterology department at [facility] 238 grams PO ONCE 238 grams 0RF Z12.11 Discontinued bisacodyl (Dulcolax (bisacodyl)) take 2 tabs at noon the day before your colonoscopy Discontinued Reason: Patient no longer taking 10 mg (2 x 5 mg) PO ONCE 1 day 2 tabs 0RF Z12.11 TODAY'S VISIT Patient is here today for follow-up and to discuss going for colonoscopy and upper endoscopy. Patient has appointment with General surgery for evaluation of perianal cyst on April 13. Colonoscopy was not booked yet. Patient was encouraged to call them if he will not hear from them in the couple weeks. Patient denies any cardiac or respiratory symptoms. Uses CPAP every night. Patient is on Ozempic. Uses senna and is able to move his bowels well. Patient is on low-dose aspirin [facility] Medical History (Updated 04/03/25 @ 19:18 by Daphne Delatorre, [facility]) Family history of colon cancer Perianal cyst Osteoarthritis of neck Back pain Anxiety and depression History of heart murmur in childhood JUAN on CPAP Knee pain, left Acid reflux Ulnar neuropathy Median neuropathy Hand numbness Diabetes mellitus Essential hypertension Lumbar degenerative disc disease Cervical radiculopathy Osteoarthritis of left knee Surgical History (Reviewed 04/03/25 @ 08:16 by Stevenson Meléndez [facility]) History of total left knee replacement (TKR) History of surgery History of cholecystectomy History of left knee surgery Family History Father Diabetes Hypertension Mother Hypertension Lung cancer Sister Stomach cancer Social History Housing: Apartment Alcohol intake: never Patient Tobacco Use Status: Never used Tobacco e-Cigarette/Vaping Use: Never Used Second Hand Smoke Exposure: No service: No Current occupational status: disabled Cognitive needs: Yes Hearing needs: No Vision needs: No Review of Systems Const Denies weight gain and Denies weight loss ENT Reports no additional complaints, Denies dysphagia and Denies odynophagia Card Reports no additional complaints Resp Reports no additional complaints GI Reports abdominal pain, Denies belching, Denies melena, Reports bloating, Denies change in bowel habits, Denies dysphagia, Denies excessive flatus, Denies dyspepsia, Reports heartburn, Denies diarrhea, Reports loose stools, Denies nausea, Denies odynophagia, Denies vomiting and Reports other (Rectal mass) Reports no additional complaints Musc Reports no additional complaints Neuro Reports no additional complaints Psych Reports no additional complaints Endo Reports no additional complaints Physical Exam Vital Signs: Last Vital Signs Pulse 68 04/03/25 08:24 BP 134/84 04/03/25 08:24 Pulse Ox 97 04/03/25 08:24 Oxygen Delivery Method Room Air 04/03/25 08:24 BMI result Body Mass Index 32.1 Const General: healthy appearing, no acute distress and well developed Nutritional Appearance: well nourished and obese Orientation/consciousness: patient oriented x3 Resp Effort & Inspection: normal respiratory effort, able to speak in complete sentences, no tracheal deviation and symmetric chest movement Auscultation: clear to auscultation bilaterally Cardio Rate: regular rate GI Inspection: Yes normal to inspection, No distended and Yes obesity Palpation (GI): Soft to palpation, not firm, nontender and No hepatosplenomegaly present Auscultation: normal bowel sounds Rectal Exam - Male: Yes visual inspection normal, Yes normal sphincter tone and Yes mass (perianal cyst) General: Yes no CVA tenderness Back/Spine/Pelvis Back: no CVA tenderness Skin General skin exam: elasticity normal, turgor normal and dry skin Neuro General: patient oriented x3 Psych Appearance: grossly normal Mental Status: mental status grossly normal Assessment & Plan Assessment & Plan (1) Screen for colon cancer: Code(s): Z12.11 - Encounter for screening for malignant neoplasm of colon Category: Medical (2) Acid reflux: Code(s): K21.9 - Gastro-esophageal reflux disease without esophagitis Category: Medical Qualifiers: Esophagitis presence: esophagitis presence not specified Qualified Code(s): K21.9 - Gastro-esophageal reflux disease without esophagitis (3) Constipation: Code(s): K59.00 - Constipation, unspecified Qualifiers: Constipation type: slow transit constipation Qualified Code(s): K59.01 - Slow transit constipation Plan What to expect before during and after procedure discussed with patient. Stressed the importance of good bowel prep and clear liquid diet. Upper endoscopy will be booked as well to evaluate for gastritis, esophagitis, Barretts. Patient has a history of sleep apnea and uses CPAP every night. Patient denies any cardiac or respiratory symptoms. Patient is agreeable to current plan of care and verbalizes understanding of instructions. He was given the opportunity to ask questions and all questions answered. Thank you for allowing me to participate in his care Medications: New polyethylene glycol 3350 (Miralax) As directed by gastroenterology department at [facility] 238 grams PO ONCE 238 grams 0RF Z12.11 - Encounter for screening for malignant neoplasm of colon bisacodyl (Dulcolax (bisacodyl)) take 4 tabs at noon the day before your colonoscopy 20 mg (4 x 5 mg) PO ONCE 4 tabs 0RF constipation 1 day Z12.11 - Encounter for screening for malignant neoplasm of colon Coding Level of Care Code Est Pt Level 4 (72697) Complex EM visit Add On G2211 Diagnoses Screen for colon cancer Z12.11 Gastroesophageal reflux disease, unspecified whether esophagitis present K21.9 Esophagitis presence: esophagitis presence not specified Slow transit constipation K59.01 Constipation type: slow transit constipation Time Spent (min) 35 Comment 25 minutes spent with patient and additional 10 minutes spent reviewing his records
[2025-04-03 08:24] VITALS: BP 134/84; PULSE 68; O2SAT 97; BMI 32.1
--- OUTSIDE RECORDS SUMMARY | 2025-04-03 08:34 | XMS_ITS | Clinical Summary ---
Author Organization [facility] ity Address [address] [place] [address] Care Team Providers Care Blogs Manager Name Role Phone Unavailable Primary Care [...]
== END 2025-04-03 09:37 | disposition home or self-care (01) ==
LOC: HO.HGI 08:14
PROVIDERS: PCP Internal Medicine; Visit Provider Nurse Practitioner Family
DX: Z01.818 Encounter for other preprocedural examination (principal); Z12.11 Encounter for screening for malignant neoplasm of colon; K21.9 Gastro-esophageal reflux disease without esophagitis; K59.01 Slow transit constipation
CPT/HCPCS: 99213

== ENCOUNTER → 2025-04-03 08:14 | Outpatient (BNVA) | payer OTHER, SELFPAY | PROVIDERS: PCP Internal Medicine; Visit Provider Nurse Practitioner Family | DX: Z01.818 Encounter for other preprocedural examination (principal); K21.9 Gastro-esophageal reflux disease without esophagitis; K59.01 Slow transit constipation | CPT/HCPCS: 99212 ==

== ENCOUNTER 2025-04-13 09:38 | Outpatient (AMB) | payer OTHER, SELFPAY ==
--- NOTE | 2025-04-13 09:40 | A.OFFVIS_ITS ---
Vital Signs 04/13/25 09:49 Height 6 ft 2 in Weight 251 lb BMI 32.2 BP 115/83 Blood Pressure Location Rt brachial Position Sitting Pulse 63 Intake Visit Reasons: perianal cyst Intake Note: Patient referred by Daphne Delatorre PA-C for evaluation on perianal cyst. Present for 2mo. Patient c/o: getting smaller. Denies bleeding, oozing. Can Capper Required: Yes Can Capper Name: Artur # [id number] Accompanied by: Self / Same As Patient Allergies No Known Allergies Allergy (Verified 04/13/25 09:44) Medication List - Last Reconciled 04/13/25 by Dustin Khalil MD aspirin 81 mg PO DAILY 90 days bisacodyl (Dulcolax (bisacodyl)) 20 mg (4 x 5 mg) PO ONCE 1 day blood pressure monitor (Blood Pressure Kit) As directed blood sugar diagnostic Use 1 freestyle test strips once a day buspirone 5 mg PO TID cane As directed clonazepam 1 mg PO BID PRN cream base no.105 (bulk) (Base W301 cream) Diclofenac 5%, Baclofen 5%, Cyclobenzaprine 2%, Gabapentin 6%, Bupivacaine 2% SIG: apply pea-sized amount 3- 5 times daily to painful areas as needed diclofenac sodium 1% 2 grams topical QID 30 days docusate sodium 100 mg PO BEDTIME duloxetine 60 mg PO DAILY empagliflozin (Jardiance) 10 mg PO DAILY 90 days ezetimibe 10 mg PO DAILY 90 days fluticasone propionate 50 mcg/actuation (Flonase Allergy Relief) 1 spray intranasal DAILY 30 days folic acid 1 mg PO DAILY 90 days furosemide 20 mg PO DAILY 90 days gabapentin 800 mg PO TID 30 days Knee brace As directed lancets As directed- daily lisinopril 20 mg PO DAILY loratadine 10 mg PO DAILY metformin 1,000 mg PO BID 90 days omeprazole 20 mg PO DAILY 90 days oxycodone 10 mg PO Q4-6H PRN 30 days polyethylene glycol 3350 (Miralax) 238 grams PO ONCE rosuvastatin 40 mg PO DAILY 90 days semaglutide (Ozempic) 1 mg (0.75 mL) subcut QWEEK 4 weeks sennosides (Natural Senna Laxative) 17.2 mg (2 x 8.6 mg) PO BEDTIME zolpidem 10 mg PO BEDTIME PRN HPI HPI perianal cyst: Details: 54-year-old male referred for a perianal cyst. He says that about 3 weeks ago, he had noticed this area of swelling on the left side outside his anus. He says that this was a little tender. He denies any drainage He says that he has been drinking tea and feels that this has resolved. He denies pain currently. [facility] Medical History Family history of colon cancer Perianal cyst Osteoarthritis of neck Back pain Anxiety and depression History of heart murmur in childhood JUAN on CPAP Knee pain, left Acid reflux Ulnar neuropathy Median neuropathy Hand numbness Diabetes mellitus Essential hypertension Lumbar degenerative disc disease Cervical radiculopathy Osteoarthritis of left knee Surgical History History of total left knee replacement (TKR) History of surgery History of cholecystectomy History of left knee surgery Family History Father Diabetes Hypertension Mother Hypertension Lung cancer Sister Stomach cancer Social History Housing: Apartment Alcohol intake: never Patient Tobacco Use Status: Never used Tobacco e-Cigarette/Vaping Use: Never Used Second Hand Smoke Exposure: No service: No Current occupational status: disabled Cognitive needs: Yes Hearing needs: No Vision needs: No Review of Systems Const Denies chills and Denies fever(s) Card Denies chest pain, Denies dyspnea and Denies dyspnea on exertion Resp Denies cough, Denies dyspnea and Denies dyspnea on exertion GI Denies hematochezia and Denies change in bowel habits Denies hematuria and Denies difficulty urinating Musc Denies back pain and Denies limited range of motion Neuro Denies focal weakness and Denies convulsions Psych Denies depression and Denies mood swings Physical Exam Vital Signs: Last Vital Signs Pulse 63 04/13/25 09:49 BP 115/83 04/13/25 09:49 BMI result Body Mass Index 32.2 Const General: comfortable and no acute distress Orientation/consciousness: patient oriented x3 Neck Neck: Yes no lymphadenopathy Resp Auscultation: clear to auscultation bilaterally Cardio Rhythm: regular rhythm GI Other: Rectal exam shows small area of induration on the perianal region on the left side. I do not see or feel any area of tenderness, sinus, or cyst. There is no discharge. Palpation (GI): Soft to palpation, nontender and no guarding Neuro General: patient oriented x3 Assessment & Plan Assessment & Plan (1) Perianal cyst: Code(s): K62.89 - Other specified diseases of anus and rectum Category: Medical Plan: He describes what seems to be a swollen perianal cyst 3 weeks ago. I am unable to feel this currently. I do not see any residual induration I told him that I would recommend him come back to the office once he feels this again as being swollen so that we can re-evaluate him and decide on appropriate management down the line He is comfortable with the plan . He also says that he is scheduled to have a colonoscopy. Coding Level of Care Code New Pt Level 3 (96066) Diagnoses Perianal cyst K62.89
[2025-04-13 09:49] VITALS: BP 115/83; PULSE 63; BMI 32.2
--- OUTSIDE RECORDS SUMMARY | 2025-04-13 10:27 | XMS_ITS | Clinical Summary ---
Author Organization [employer] [facility] ity Address [address] [place] [address] Care Team Providers Care Roundhouse Worker Name Role Phone Unavailable Primary Care Provider [...] 09/04/2023 Social Influencers of Health Screening 09/04/2023 Depression Screening 08/10/2024 COVID-19 Vaccine (1 - 2023-2 5 season) 2025 Influenza Vaccine (#1) 2025 HIB Vaccines Aged [...]
== END 2025-04-13 10:02 | disposition home or self-care (01) ==
LOC: HO.HGS 09:38
PROVIDERS: PCP Internal Medicine; Visit Provider Surgery
DX: K62.89 Other specified diseases of anus and rectum (principal)
CPT/HCPCS: 99203

== ENCOUNTER → 2025-04-13 09:38 | Outpatient (BNVA) | payer OTHER, SELFPAY | PROVIDERS: PCP Internal Medicine; Visit Provider Surgery | DX: K62.89 Other specified diseases of anus and rectum (principal) | CPT/HCPCS: 99202 ==

== ENCOUNTER 2025-04-18 09:39 | Outpatient (REF) | payer OTHER, SELFPAY ==
[2025-04-18 11:39] LABS: Alanine Aminotransferase 40 U/L (0-40); Albumin Level 4.4 g/dL (3.5-5.0); Alkaline Phosphatase 50 U/L (39-117); Anion Gap 13 (12-20); Aspartate Amino Transferase 29 U/L (5-37); Blood Urea Nitrogen 6 mg/dL (9-16); Calcium 9.3 mg/dL (8.4-10.2); Carbon Dioxide 26 mmol/L (22-29); Chloride 104 mmol/L (96-108); Cholesterol 176 mg/dL (<200); Estimated Glomerular Filt Rate > 60; HDL Cholesterol 46 mg/dL (>40); Potassium 3.8 mmol/L (3.3-5.1); Sodium 139 mmol/L (135-145); Total Protein 7.4 g/dL (6.5-8.0); Triglycerides 154 mg/dL (<150)
== END 2025-04-18 09:40 | disposition home or self-care (01) ==
LOC: HO.LAB 09:39
PROVIDERS: PCP Internal Medicine; Visit Provider Internal Medicine
DX: E11.9 Type 2 diabetes mellitus without complications (principal); E78.5 Hyperlipidemia, unspecified
CPT/HCPCS: 36415; 80053; 80061

== ENCOUNTER 2025-04-19 13:15 | Outpatient (AMB) | payer OTHER, SELFPAY ==
--- NOTE | 2025-04-19 13:16 | A.OFFPC_ITS ---
Vital Signs 04/19/25 13:19 Height 6 ft 2 in Weight 249 lb 8 oz BMI 32.0 BP 128/66 Blood Pressure Location Lt brachial Position Sitting Pulse 84 Pulse Oximetry (%) 98 Oxygen Delivery Method Room Air Intake Visit Reasons: DM Gymnastic Coach Required: No Accompanied by: Self / Same As Patient Allergies No Known Allergies Allergy (Verified 04/19/25 13:48) Medication List - Last Reconciled 04/19/25 by Jennifer Galvin MD aspirin 81 mg PO DAILY 90 days bisacodyl (Dulcolax (bisacodyl)) 20 mg (4 x 5 mg) PO ONCE 1 day blood pressure monitor (Blood Pressure Kit) As directed blood sugar diagnostic Use 1 freestyle test strips once a day buspirone 5 mg PO TID cane As directed clonazepam 1 mg PO BID PRN cream base no.105 (bulk) (Base W301 cream) Diclofenac 5%, Baclofen 5%, Cyclobenzaprine 2%, Gabapentin 6%, Bupivacaine 2% SIG: apply pea-sized amount 3- 5 times daily to painful areas as needed diclofenac sodium 1% 2 grams topical QID 30 days docusate sodium 100 mg PO BEDTIME duloxetine 60 mg PO DAILY empagliflozin (Jardiance) 10 mg PO DAILY 90 days ezetimibe 10 mg PO DAILY 90 days fluticasone propionate 50 mcg/actuation (Flonase Allergy Relief) 1 spray intranasal DAILY 30 days folic acid 1 mg PO DAILY 90 days furosemide 20 mg PO DAILY 90 days gabapentin 800 mg PO TID 30 days Knee brace As directed lancets As directed- daily lisinopril 20 mg PO DAILY loratadine 10 mg PO DAILY metformin 1,000 mg PO BID 90 days omeprazole 20 mg PO DAILY 90 days oxycodone 10 mg PO Q4-6H PRN 30 days polyethylene glycol 3350 (Miralax) 238 grams PO ONCE rosuvastatin 40 mg PO DAILY 90 days semaglutide (Ozempic) 1 mg (0.75 mL) subcut QWEEK 4 weeks sennosides (Natural Senna Laxative) 17.2 mg (2 x 8.6 mg) PO BEDTIME zolpidem 10 mg PO BEDTIME PRN Tobacco use date assessed: 04/19/25 Dental Screening Dental Screen Date: 04/19/25 Did you have a dental visit in the last 12 months?: No Did you have a dental problem in the last 6 months where you did not have access to dental care?: No Was dental information given to patient?: Patient has dentist HPI HPI Comments History of Present Illness Details The patient is a 54-year-old male presenting with the management of multiple chronic conditions including hypertension, diabetes mellitus, and hyperlipidemia. Hypertension has been well-controlled with a current blood pressure reading of 128/66 mmHg. The patient is on lisinopril for blood pressure management. Diabetes mellitus management includes medications such as metformin and Jardiance, with a recent fasting blood glucose level of 198 mg/dL, indicating suboptimal control. The patient is also on Ozempic, which may be increased to 2 mg to improve glycemic control and assist with weight management. Hyperlipidemia is being managed with ezetimibe and rosuvastatin, although LDL cholesterol remains at 100 mg/dL, above the target of 70 mg/dL. Further evaluation for familial hyperlipidemia is planned. The patient experiences anxiety and depression, managed with buspirone, clonazepam, and duloxetine. A PHQ-9 score of 4 indicates mild depressive symptoms. Chronic pain is managed with oxycodone, and Narcan is prescribed as a precaution against opioid overdose. The patient has a history of allergic rhinitis, neuropathy, and gastroesophageal reflux disease, managed with appropriate medications. Hypothyroidism is suspec yamil with a slightly elevated thyroid level of 4.2, and repeat testing is planned for early May. [facility] Medical History (Updated 04/19/25 @ 16:28 by Jennifer Galvin MD) Family history of colon cancer Perianal cyst Osteoarthritis of neck Back pain Anxiety and depression History of heart murmur in childhood JUAN on CPAP Knee pain, left Acid reflux Ulnar neuropathy Median neuropathy Hand numbness Diabetes mellitus Essential hypertension Lumbar degenerative disc disease Cervical radiculopathy Osteoarthritis of left knee Surgical History History of total left knee replacement (TKR) History of surgery History of cholecystectomy History of left knee surgery Family History Father Diabetes Hypertension Mother Hypertension Lung cancer Sister Stomach cancer Social History Housing: Apartment Alcohol intake: never Patient Tobacco Use Status: Never used Tobacco e-Cigarette/Vaping Use: Never Used Second Hand Smoke Exposure: No service: No Current occupational status: disabled Cognitive needs: Yes Hearing needs: No Vision needs: No Questionnaire PHQ-9 Over the last 2 weeks, how often have you been bothered by any of the following problems? 1. Little interest or pleasure in doing things: several days 2. Feeling down, depressed, or hopeless: several days 3. Trouble falling or staying asleep, or sleeping too much: several days 4. Feeling tired or having little energy: not at all 5. Poor appetite or overeating: several days 6. Feeling bad about yourself - or that you are a failure or have let yourself or your family down: not at all 7. Trouble concentrating on things, such as reading the newspaper or watching television: not at all 8. Moving or speaking so slowly that other people could have noticed. Or the opposite - being so fidgety or restless that you have been moving around a lot more than usual: not at all 9. Thoughts that you would be better off or of hurting yourself in some way : not at all Total score: 4 Depression Screening Interpretation: Positive Depression Screening Follow-up: Existing condition, In treatment, Community Mental Health Worker F/U and Follow- up Visit Requested Depression Screening Done: Yes 09032 - PHQ-9 Billing: Yes Source: Developed by Drs. Guillaume Corea, Jordana Robertson, Froilan Aguilar and colleagues, with an educational radhika from [employer]. Thrive Questionnaire Date Thrive assessed: 04/19/25 I am a: Patient What is your living situation today?: I have a steady place to live Within the past 12 months, did the food you bought not last and you didn't have the money to get more?: I choose not to answer this question Within the past 12 months, did you worry whether your food would run out before you got money to buy more?: Sometimes True Do you have trouble paying for medicines?: I choose not to answer this question Do you have trouble getting transportation to medical appointments?: No Do you have trouble paying your heating and electricity bill?: Yes Do you have trouble taking care of your child, family member or friend?: I choose not to answer this question Do you have trouble with day-to-day activities such as bathing, preparing meals, shopping, managing finances, etc.?: I choose not to answer this question Are you currently unemployed and looking for a job?: I choose not to answer this question Are you interested in more education?: I choose not to answer this question Please select the resources that you would like help with: Food and Care for [place] or disabled Currently or been in a relationship where the following occur: I choose not to answer THRIVE Score: 2 AUDIT C Alcohol Use Questionnaire (AUDIT-C) 1. How often do you have a drink containing alcohol?: Never 2. How many drinks containing alcohol do you have on a typical day when you are drinking?: 1 or 2 3. How often do you have six or more drinks on one occasion?: Never Total Score: 0 Score Reviewed/Action Taken: No LOBO-7 AMB Questionnaire LOBO-7 Date LOBO - 7 assessed: 09/13/24 Feeling nervous, anxious, or on edge: 1 = Several days Not being able to stop or control worryin = Several days Worrying too much about different things: 1 = Several days Trouble relaxin = Several days Being so restless that it is hard to sit still: 1 = Several days Becoming easily annoyed or irritable: 1 = Several days Feeling afraid as if something awful might happen: 0 = Not at all Total LOBO-7 score (0-4 normal; 5-9 mild; 10-14 moderate; 15-21 severe): 6 Source: Developed by Drs. Guillaume Corea, Jordana Robertson, Froilan Aguilar and colleagues, with an educational radhika from [employer]. LOBO-7 Assessment Billing LOBO-7 Assessment Tool: LOBO-7 Assessment 34645 Review of Systems Const All systems reviewed & are unremarkable except as noted in HPI and below Card Denies chest pain at rest, Denies chest pain with activity, Denies edema, Denies irregular heart rhythm, Denies claudication, Denies dyspnea, Denies dyspnea on exertion, Denies orthopnea, Denies paroxysmal nocturnal dyspnea and Denies slow heart rate Resp Denies cough, Denies dyspnea and Denies dyspnea on exertion GI Denies abdominal pain, Denies change in bowel habits, Denies excessive flatus, Denies nausea and Denies vomiting Physical exam (Primary Care) Vital Signs: Last Vital Signs Pulse 84 04/19/25 13:19 BP 128/66 04/19/25 13:19 Pulse Ox 98 04/19/25 13:19 Oxygen Delivery Method Room Air 04/19/25 13:19 BMI result Body Mass Index 32.0 BMI Assessment/Plan discussion: High BMI High, discussed plan: lifestyle, weight reduction, dietary and physical activity Tobacco/Smoking Status: Tobacco use Status Tobacco use date assessed 04/19/25 04/19/25 13:23 Patient Tobacco Use Status Never used Tobacco 04/19/25 13:17 e-Cigarette/Vaping Use Never Used 04/19/25 13:17 PHQ-9: PHQ-9 Score PHQ-9: Total score 4 04/19/25 14:08 Depression Screening Interpretation: Positive Depression Screening Follow-up: Existing condition, In treatment, Community Mental Health Worker F/U and Follow- up Visit Requested Thrive Assessment: Date of Thrive Assessment Date Thrive assessed 04/19/25 04/19/25 13:23 Currently or been in a relationship where the following occur: I choose not to answer Const Limitations: ambulation with cane Resp Effort & Inspection: normal respiratory effort Auscultation: clear to auscultation bilaterally Cardio Jugular venous distension: no JVD Rate: regular rate Rhythm: regular rhythm Heart sounds: S1 normal heart sound present and S2 normal heart sound present Extrem General: Yes full ROM Results AMB Hemoglobin A1c AMB Hemoglobin A1c 8.2 % Last Edit by DAVID Barreto on 04/19/25 14 :09 Results Reviewed Results Reviewed: Laboratory Last Values Hgb A1c (Clinic) 8.2 % (4.0-6.0) H 04/19/25 13:52 Coding Level of Care Code Est Pt Level 4 (35229) Complex EM visit Add On G2211 Diagnoses Elevated TSH R79.89 Type 2 diabetes mellitus without complication, without long-term current use of insulin E11.9 Diabetes mellitus type: type 2 Diabetes mellitus long term care phlebotomist insulin use: without long-term use Diabetes mellitus complication status: without complication Essential hypertension I10 Hyperlipidemia LDL goal <70 E78.5 Mild recurrent major depression F33.0 Additional Codes LOBO-7 Assessment Billing - LOBO-7 Assessment Tool: LOBO-7 Assessment 25375 ([id number]) PHQ-9 - 76489 - PHQ-9 Billing: Yes ([id number]) Time Spent (min) 23 Assessment & Plan Assessment & Plan (1) Elevated TSH: Code(s): R79.89 - Other specified abnormal findings of blood chemistry Category: Medical (2) Diabetes mellitus: Code(s): E11.9 - Type 2 diabetes mellitus without complications Category: Medical Qualifiers: Diabetes mellitus type: type 2 Diabetes mellitus long term care phlebotomist insulin use: without long term care phlebotomist use Diabetes mellitus complication status: without complication Qualified Code(s): E11.9 - Type 2 diabetes mellitus without complications (3) Essential hypertension: Code(s): I10 - Essential (primary) hypertension Category: Medical (4) Hyperlipidemia LDL goal <70: Code(s): E78.5 - Hyperlipidemia, unspecified Category: Medical (5) Mild recurrent major depression: Code(s): F33.0 - Major depressive disorder, recurrent, mild Category: Medical Plan Plan Patient was informed and verbally consented to the use of an ambient scribe for clinic note documentation during this visit. 1. Essential (primary) hypertension I10 The patient's hypertension is currently well-controlled with a blood pressure of 128/66 mmHg, managed with lisinopril. 2. Type 2 diabetes mellitus without complications E11.9 HCC 19 Diabetes management includes metformin and Jardiance, with a fasting blood glucose of 198 mg/dL indicating suboptimal control. Consideration is being given to increasing Ozempic to 2 mg to improve glycemic control and assist with weight management. 3. Hyperlipidemia, unspecified E78.5 Hyperlipidemia is managed with ezetimibe and rosuvastatin, with LDL cholesterol at 100 mg/dL, above the target of 70 mg/dL. Further evaluation for familial hyperlipidemia is planned. 4. Major depressive disorder, recurrent, mild F33.0 HCC 59 Anxiety and depression are managed with buspirone, clonazepam, and duloxetine, with a PHQ-9 score of 4 indicating mild depression. 5. Opioid use, unspecified, uncomplicated F11.90 Chronic pain is managed with oxycodone, and Narcan is prescribed as a precaution against opioid use. Orders: Orders AMB Hemoglobin A1c Today Z13.9 - Encounter for screening, unspecified Thyroid Stimulating Hormone 4 Weeks R79.89 - Other specified abnormal findings of blood chemistry Vitamin D 25-OH Total 4 Months E55.9 - Vitamin D deficiency, unspecified Comprehensive [place]. Panel Fast 4 Months E11.9 - Type 2 diabetes mellitus without complications Lipid Panel 4 Months E78.5 - Hyperlipidemia, unspecified Microalbumin, Random (w Creat) 4 Months R80.9 - Proteinuria, unspecified Vitamin B12 and Folate 4 Months E53.8 - Deficiency of other specified B group vitamins Lipoprotein A Today E78.5 - Hyperlipidemia, unspecified Lipoprotein Asso Phospholip A2 Today E78.5 - Hyperlipidemia, unspecified Apolipoprotein B Today E78.5 - Hyperlipidemia, unspecified Medications: New naloxone 4 mg/actuation (Narcan) spray 1 dose into ONE nostril; alternate nostrils w each dose until help arrives 4 mg intranasal Q2M PRN 2 ea 1RF opioid overdose 30 days semaglutide (Ozempic) 2 mg (0.75 mL) subcut QWEEK 3 mL 0RF 4 weeks E11.9 - Type 2 diabetes mellitus without complications Refilled ezetimibe 10 mg PO DAILY 90 tabs 1RF 90 days Discontinued semaglutide (Ozempic) Discontinued Reason: Patient Completed Course 1 mg (0.75 mL) subcut QWEEK 4 weeks 3 mL 0RF E11.9 - Type 2 diabetes mellitus without complications
[2025-04-19 13:19] VITALS: BP 128/66; PULSE 84; O2SAT 98; BMI 32.0
--- OUTSIDE RECORDS SUMMARY | 2025-04-19 16:15 | XMS_ITS | Clinical Summary ---
Author Organization [employer] [facility] ity Address [address] [place] [address] Care Team Providers Care Web User Experience Strategist Name Role Phone Unavailable Primary Care Provider [...]
== END 2025-04-19 14:05 | disposition home or self-care (01) ==
LOC: HO.HMCH 13:16
PROVIDERS: PCP Internal Medicine; Visit Provider Internal Medicine
DX: R79.89 Other specified abnormal findings of blood chemistry (principal); E11.9 Type 2 diabetes mellitus without complications; I10 Essential (primary) hypertension; E78.5 Hyperlipidemia, unspecified; F33.0 Major depressive disorder, recurrent, mild; Z13.9 Encounter for screening, unspecified

== ENCOUNTER → 2025-04-19 13:15 | Outpatient (BNVA) | payer OTHER, SELFPAY | PROVIDERS: PCP Internal Medicine; Visit Provider Internal Medicine | DX: E11.9 Type 2 diabetes mellitus without complications (principal); R94.6 Abnormal results of thyroid function studies; I10 Essential (primary) hypertension; E78.5 Hyperlipidemia, unspecified; F33.0 Major depressive disorder, recurrent, mild; G89.29 Other chronic pain; Z79.891 Long term (current) use of opiate analgesic; Z79.899 Other long term (current) drug therapy; Z13.30 Encounter for screening examination for mental health and behavioral disorders, unspecified | CPT/HCPCS: 83036; 96127; 99212 ==